=== PATIENT | female | born 1980 | race Caucasian/White ===

== ENCOUNTER 2017-08-19 12:21 | Inpatient (IN) ==
[2017-08-19 13:18] LABS: VBG PH 7.41 pH Units (7.32-7.42)
[2017-08-19 13:19] LABS: Basophils # 0.1 K/mcL (0.0-0.2); Basophils % 0.5 %; Eosinophils # 0.1 K/mcL (0.0-0.6); Eosinophils % 0.6 %; Hematocrit 37.4 % (35.3-44.9); Immature Granulocytes % 0.9 % (0-4); Lymphocytes # 1.2 K/mcL (0.6-4.6); Lymphocytes % 9.1 %; Mean Corpuscular HGB Conc 32.1 g/dL (31.6-35.5); Mean Corpuscular Hemoglobin 26.5 pg (28.0-33.3); Mean Corpuscular Volume 82.7 fL (83.0-100.0); Mean Platelet Volume 11.8 fL (9.4-12.4); Monocytes # 1.2 K/mcL (0.0-1.3); Monocytes % 9.1 %; Neutrophils # 10.8 K/mcL (1.6-8.9); Platelet Count 235 K/mcL (140-400); Red Blood Count 4.52 M/mcL (3.82-4.97); Red Cell Distribution Width 12.5 % (11.5-14.5); Segmented Neutrophils % 79.8 %
[2017-08-19 13:36] LABS: BUN/Creatinine Ratio 13 (6-26); Blood Urea Nitrogen 11 mg/dL (7-20); Calcium 9.7 mg/dL (8.6-10.8); Carbon Dioxide 22 mEq/L (19-29); Chloride 94 mEq/L (98-109); Glucose 467 mg/dL (70-99); Osmolality,Calculated 292 (280-300); Sodium 131 mEq/L (136-145); eGFR For African Americans > 60 (> 60); eGFR For Non-African Americans > 60 (> 60)
[2017-08-19 14:15] LABS: Beta-Hydroxybutyric Acid > 2.00 mmol/L (0.02-0.27)
[2017-08-19] MEDS ORDERED: Insulin Human Regular 8 UNIT in 0.9 % Sodium Chloride 10 ML IV ONE (15:42)
[2017-08-19] MEDS ORDERED: Vancomycin 1,000 MG in D5% in Water 250 ML IVPB ONE ×2 (15:42→23:00)
--- NOTE | 2017-08-19 15:44 | Emergency Department Note ---
Disposition Clinical Impression: Cellulitis of foot, Hyperglycemia Disposition: Admitted As Inpatient Condition: Fair Referrals: Celia Hall, AUTOMOTIVE MECHANICAL ENGINEER [Primary Care Provider] - Forms: ED Satisfaction Letter Time of Disposition: 17:44 Extremity Problem HPI - General Chief complaint: ED Extremity Problem,Nontraumatic Stated complaint: High sugars/cellulitis on right foot Time Seen by Provider: 08/19/17 12:27 Source: patient Mode of arrival: ambulatory Limitations: no limitations Nursing Notes Reviewed: Yes Vital Signs Reviewed: Yes - History of Present Illness HPI Narrative: 36-year-old female with a history of diabetes comes in with a red swollen right foot. The patient was seen by Dr. curry today and was sent over for admission and surgery tomorrow. Pt Subjective Complaint: extremity pain, extremity swelling Onset (ago): day(s) Consistency: constant Pain Scale: 10 Quality: burning, aching Improves with: nothing Worsens with: weight bearing, walking Associated symptoms: Denies: chest pain, shortness of breath - Related Data Home Medications Medication Instructions Recorded Confirmed Hydrocodone/Acetaminophen [Vicodin 1 each PO Q4H PRN 08/04/16 08/04/16 Es 7.5-300 mg Tablet] Insulin ASPART [NovoLOG] 6 - 8 units SQ TID 08/04/16 08/04/16 Insulin Glargine [Lantus] 60 units SQ QAM 08/04/16 08/04/16 Levothyroxine [Synthroid] 75 mcg PO DAILY 08/04/16 08/04/16 Vancomycin HCl 125 mg PO QID 08/04/16 08/04/16 metFORMIN [Glucophage] 1,000 mg PO DAILY 08/04/16 08/04/16 Previous Rx's Medication Instructions Recorded Vancomycin [Vancocin (wt based)] 0 mg IV DAILY 14 Days vial 08/07/16 traMADol [Ultram] 50 mg PO Q6HR PRN #30 tablet 08/09/16 Ciprofloxacin [Cipro] 500 mg PO BID 10 Days tablet 02/19/17 Doxycycline 100 mg PO BID 10 Days capsule 02/19/17 Allergies Allergy/AdvReac Type Severity Reaction Status Date / Time Amoxicillin Allergy Swelling Verified 02/19/17 18:04 of Lip/Tongue/Throat ampicillin Allergy Swelling Verified 02/19/17 18:04 of Lip/Tongue/Throat Sulfa (Sulfonamide Allergy Rash Verified 02/19/17 18:04 Antibiotics) sulfamethoxazole Allergy Rash Verified 02/19/17 18:04 [From Bactrim] trimethoprim [From Bactrim] Allergy Rash Verified 02/19/17 18:04 Erythromycin Base AdvReac Unknown Itching Verified 02/19/17 18:04 Penicillins [PCN] AdvReac Itching Verified 02/19/17 18:04 Constitutional: Denies: fever, chills, weakness, weight change Eyes: Denies: eye pain, eye discharge, vision change ENT ED: Denies: ear pain, throat pain, dental pain, hearing loss, epistaxis, congestion, dysphagia Cardiovascular: Denies: chest pain, palpitations, dyspnea on exertion, edema, syncope Respiratory: Denies: cough, dyspnea, wheezes, hemoptysis, stridor Gastrointestinal: Denies: abdominal pain, nausea, vomiting, diarrhea, constipation, hematemesis, melena, hematochezia Genitourinary: Denies: dysuria, frequency, hematuria, discharge Musculoskeletal: Reports: arthralgia. Denies: back pain, neck pain, myalgia Integumentary: Denies: rash, abrasion, lesions Neurological: Denies: headache, weakness, numbness, paresthesias, confusion, abnormal gait, vertigo Psychiatric: Denies: anxiety, depression, suicidal thoughts, homicidal thoughts , auditory hallucinations, visual hallucinations Endocrine: Denies: fatigue Hematological/Lymphatic: Denies: easy bleeding, easy bruising Allergic/Immunologic: Denies: facial swelling, urticaria Past Medical History - Past Medical History Medical history: Reports: diabetes, hypertension, thyroid disease Surgical history: Reports: orthopedic, other (Left great toe amputation) Psychiatric history: Reports: no psych history ZANJERO history: Reports: no ZANJERO history - Social History Smoking Status: Former smoker Smokeless Tobacco Status: No Alcohol use: Reports: none Drug use: Reports: none Physical Exam - General Limitations: no limitations General appearance: alert, in no apparent distress - Head Head exam: atraumatic, normocephalic, normal inspection - Eye Eye exam: Present: normal appearance, PERRL, EOMI - ENT ENT exam: normal exam, normal oropharynx, mucous membranes moist - Neck Neck exam: Present: normal inspection, full ROM, trachea midline - Chest Chest inspection: Present: normal inspection, symmetric chest wall rise - Respiratory Respiratory exam: Present: normal lung sounds bilaterally - Cardiovascular Cardiovascular exam: Present: regular rate, normal rhythm, normal heart sounds - Abdominal Exam Abdominal exam: Present: soft, Non-Tender. Absent: tenderness, distention, guarding, rebound, rigidity - Extremities Exam Extremities exam: Present: normal inspection, full ROM. Absent: tenderness, pedal edema - Expanded Lower Extremity Exam Foot/toe exam: Present: tenderness (Right dorsum foot), swelling (Right foot), erythema (Right foot) Neurovascular/Tendon exam: Absent: motor deficit, sensory deficit, tendon deficit Gait: not tested/not observed - Back Exam Back exam: Present: normal inspection, full ROM. Absent: tenderness - Neurological Exam Neurological exam: Present: alert, oriented X3 - Psychiatric Psychiatric exam: Present: normal affect, normal mood - Skin Skin exam: Present: warm, dry, intact, normal color Course - Reevaluation(s) Reevaluation #1: 36-year-old diabetic comes in with an infected right foot. Patient saw podiatry today and they wanted do surgery on her tomorrow. We will admit IV antibiotics. Time: 17:42 - Consultations Consultation #1: Discussed with Dr. curry, admit to hospitalist. Time: 15:30 Consultation #2: Discussed with Dr. Kimball, admit Time: 17:43 Vital Signs Temperature 98.2 F 08/19/17 12:24 Pulse Rate 95 08/19/17 12:24 Respiratory Rate 16 08/19/17 12:24 Blood Pressure 157/85 08/19/17 12:24 O2 Sat by Pulse Oximetry 98 08/19/17 12:24 Temperature 98.2 F 08/19/17 12:24 Pulse Rate 94 08/19/17 16:36 Respiratory Rate 18 08/19/17 16:36 Blood Pressure 151/87 08/19/17 16:36 O2 Sat by Pulse Oximetry 95 08/19/17 16:36 Oxygen Delivery Oxygen Delivery Room Air Extremity Problem, Nontraumati - Lab Data Lab results reviewed: Yes I reviewed the patient's lab results. Result diagrams: 08/19/17 13:08 08/19/17 13:08 Lab Results 08/19/17 08/19/17 08/19/17 Range/Units 13:08 13:08 13:08 WBC 13.5 H (4.3-11.1) K/mcL RBC 4.52 (3.82-4.97) M/mcL Hgb 12.0 (11.5-15.4) g/dL Hct 37.4 (35.3-44.9) % MCV 82.7 L (83.0-100.0) fL MCH 26.5 L (28.0-33.3) pg MCHC 32.1 (31.6-35.5) g/dL RDW 12.5 (11.5-14.5) % Plt Count 235 (140-400) K/mcL MPV 11.8 (9.4-12.4) fL Immature Gran % 0.9 (0-4) % Seg Neutrophils % 79.8 % Lymphocytes % 9.1 % Monocytes % 9.1 % Eosinophils % 0.6 % Basophils % 0.5 % Neutrophils # 10.8 H (1.6-8.9) K/mcL Lymphocytes # 1.2 (0.6-4.6) K/mcL Monocytes # 1.2 (0.0-1.3) K/mcL Eosinophils # 0.1 (0.0-0.6) K/mcL Basophils # 0.1 (0.0-0.2) K/mcL VBG pH 7.41 (7.32-7.42) pH Units VBG pCO2 43 (41-51) mmHg VBG pO2 38 (25-40) mmHg VBG HCO3 27 (21-27) mEq/L Sodium 131 L (136-145) mEq/L Potassium 4.0 (3.5-4.5) mEq/L Chloride 94 L (98-109) mEq/L Carbon Dioxide 22 (19-29) mEq/L BUN 11 (7-20) mg/dL Creatinine 0.82 (0.57-1.11) mg/dL Est GFR ( Amer) > 60 (> 60) Est GFR (Non-Af Amer) > 60 (> 60) BUN/Creatinine Ratio 13 (6-26) Glucose 467 H (70-99) mg/dL Calculated Osmolality 292 (280-300) Calcium 9.7 (8.6-10.8) mg/dL Beta-Hydroxybutyric Acd > 2.00 H (0.02-0.27) mmol/L - Radiology Data Radiology results reviewed: Yes I reviewed the patient's radiology results. Chest X-Ray 08/19/17 12:33 IMPRESSION: No acute pulmonary process. D/ / Art Barker / Art Barker Interpreting Provider: Art Barker Foot X-Ray 08/19/17 12:34 IMPRESSION: Soft tissue swelling along the medial aspect of the foot suggesting cellulitis but nonspecific. No evidence of soft tissue gas. No specific radiographic evidence of osteomyelitis. D/ / 08/19/2017 13:09:33 Nick Cheatham MD / Heena Cowan Interpreting Provider: Nick Cheatham MD
[2017-08-19] MEDS ORDERED: Lidocaine -MPF 1% 5 ML AMPUL INFILT ONE (15:45)
[2017-08-19] MEDS ORDERED: Lidocaine -MPF 1% 2 ML VIAL INFILT ONE (16:00)
[2017-08-19 18:20] LABS: C-Reactive Protein 142 mg/L (Less than 5)
[2017-08-19] MEDS ORDERED: *HR* HYDROmorphone (PF) 1 MG/ML SYRINGE IVP ONE (19:00)
[2017-08-19] MEDS ORDERED: Ondansetron 4 MG/2 ML VIAL IVP ONE (19:00)
--- NOTE | 2017-08-19 19:53 | Internal Med History&Physical ---
<Carlos Basilio - Last Filed: 08/19/17 22:47> Date of Encounter: 08/19/17 Time of Encounter: 19:52 Assessment and Plan (1) Sepsis Current visit: Yes Status: Acute 2 SIRS criteria HR 97, WBC 13.5, RLE cellulitis source of infection Lactic acid pending, sepsis bolus ordered, continue IVF at 125cc/hr Blood, urine, and wound cultures pending. 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 Patient has a power glide in place. Continue Vanc and Aztreonam (patient is allergic to PCN) X ray reveals soft tissue swelling along the medial aspect of the foot suggesting cellulitis but nonspecific. No evidence of soft tissue gas. CT right foot pendingto r/o osteomyelitis Qualifiers: Osteomyelitis location: foot Laterality: right Qualified Code(s): M86.9 - Osteomyelitis, unspecified (3) Cellulitis of foot Current visit: Yes Status: Acute Patient sent to the ED from Podiatry/ Dr. Lo office today due to infected diabetic foot ulcer, Right foot cellulitis. WBC 13.5, CRP 142, ESR > 130 X ray reveals soft tissue swelling along the medial aspect of the foot suggesting cellulitis but nonspecific. No evidence of soft tissue gas. No specific radiographic evidence of osteomyelitis. Continue Vanc and Aztreonam (patient is allergic to PCN) (4) Hyperglycemia Current visit: Yes Status: Acute Blood glucose 545 --> 431, Beta-hydroxybutyric acid > 2 Anion gap 15 8 units Insulin given in ED, Levemir 60 units given, plus high dose SSI Continue to monitor (5) Diabetes mellitus type 2 in obese Current visit: Yes Status: Acute HGB a1c > 14.1 on 08/04/17 Continue home insulin, corrective high dose SSI, and accuchecks Continue to monitor (6) Hypertension Current visit: No Status: Chronic Continue home meds Qualifiers: Hypertension type: essential hypertension Qualified Code(s): I10 - Essential (primary) hypertension (7) Hypothyroidism Current visit: No Status: Chronic Continue home meds Qualifiers: Hypothyroidism type: acquired Qualified Code(s): E03.9 - Hypothyroidism, unspecified (8) Morbid obesity with BMI of 45.0-49.9, adult Current visit: Yes Status: Acute Discussed diet modification and exercise (9) DVT prophylaxis Current visit: No Status: Acute Hold Heparin due to surgery in AM Internal Medicine - H&P: HPI Chief complaint: Right foot infection Admitted From: Home Plans for Post Hospital Care: Home History of present illness: Ms. Rocha is a 36 year old female with a PMH of poorly controlled DM, HTN, and hypothyroidism that was sent to the ED from Podiatry/ Dr. Lo office today due to infected diabetic foot ulcer. 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 Patient has a power glide line in place and will likely have surgery tomorrow AM. Past Med Surg Social Fam HX - Past Medical History Medical history: diabetes, hypertension, thyroid disease Psychiatric history: no psych history - Past Surgical History Surgical History: orthopedic, other (Left great toe amputation) - Social History Smoking Status: Former smoker Smokeless Tobacco Status: No Alcohol use: none Drug use: none - Family History Mother Hx Family Endocrine Disorder: Yes Internal Medicine - H&P: Meds Insulin ASPART [NovoLOG] 0 units SQ TID 08/04/16 [History] Insulin Glargine [Lantus] 60 units SQ QAM 08/04/16 [History] Levothyroxine [Synthroid] 75 mcg PO DAILY 08/04/16 [History] Doxycycline Hyclate [Vibramycin] 100 mg PO Q12H 08/19/17 [History] Lisinopril [Zestril] 20 mg PO DAILY 08/19/17 [History] 3 Allergy/AdvReac Type Severity Reaction Status Date / Time Amoxicillin Allergy Swelling Verified 02/19/17 18:04 of Lip/Tongue/Throat ampicillin Allergy Swelling Verified 02/19/17 18:04 of Lip/Tongue/Throat Sulfa (Sulfonamide Allergy Rash Verified 02/19/17 18:04 Antibiotics) sulfamethoxazole Allergy Rash Verified 02/19/17 18:04 [From Bactrim] trimethoprim [From Bactrim] Allergy Rash Verified 02/19/17 18:04 Erythromycin Base AdvReac Unknown Itching Verified 02/19/17 18:04 Penicillins [PCN] AdvReac Itching Verified 02/19/17 18:04 All Systems PM: A 10-system review of systems was performed and is negative for pertinent findings except as documented above in the HPI. - Constitutional Constitutional: no chills, no fever(s), no night sweats - EENT Eyes: no change in vision Nose, mouth and throat: no dysphagia, no nasal discharge, no neck pain, no sore throat - Cardiovascular Cardiovascular ROS IM: no chest pain, no dyspnea, no palpitations, no syncope - Respiratory Respiratory: no cough, no dyspnea, no wheezing, no excessive phlegm production - Gastrointestinal Gastrointestinal: no abdominal pain, no diarrhea, no nausea, no vomiting - Genitourinary Genitourinary: no change in urinary stream, no dysuria, no flank pain, no hematuria - Musculoskeletal Musculoskeletal ROS IM: arthralgias, joint swelling, myalgias, no numbness, no tingling - Integumentary Integumentary IM: erythema, new lesions, skin ulcer, no rash, no unusual bruising - Neurological Neurological ROS: no confusion, no convulsions, no focal weakness, no numbness, no tingling, no tremor(s) - Hematologic/Lymphatic Hematologic/Lymphatic: no easy bruising - Constitutional Vitals: Temp Pulse Resp BP Pulse Ox 98.2 F 94 16 152/75 95 08/19/17 12:24 08/19/17 16:36 08/19/17 18:44 08/19/17 18:44 08/19/17 16:36 General appearance: Present: A&O X 3, morbidly obese, pleasant, no acute distress, answers questions appropriately - Head Head exam: Present: atraumatic, normal inspection, normocephalic - Eye Eye exam: Present: EOMI, PERRL - ENT ENT exam: Present: mucous membranes moist, normal oropharynx - Neck Neck exam general surgery: Present: lymphadenopathy, normal inspection, tenderness, supple - Respiratory Respiratory exam: Present: CTAB. Absent: rhonchi, wheezes - Cardiovascular Cardiovascular exam: Present: RRR, +S1, +S2 - GI/Abdominal GI/Abdominal exam: Present: normal bowel sounds, soft. Absent: distended, guarding, tenderness - Extremities Exam Extremities exam: Present: joint swelling, pedal edema (erythema, swelling, and ulcer with purulent discharge between right toes 1 & 2, tenderness, no proximal streaking), tenderness, warm Additional comments: prior left great to amputation - Back Exam Back exam: Present: normal inspection. Absent: tenderness - Neurological Exam Neurological exam: Present: alert, oriented X3, no focal deficits, strengths equal and symetr throughout. Absent: altered - Psychiatric Psychiatric exam: Present: normal affect, normal mood Additional comments: poor insight - Skin Skin exam: Present: erythema Additional comments: erythema, swelling, and ulcer with purulent discharge between right toes 1 & 2 Internal Med - H&P Results - Labs CBC & Chem 7: 08/19/17 13:08 08/19/17 13:08 <Shaquille Guevara - Last Filed: 08/19/17 22:56> Date of Encounter: 08/19/17 Internal Medicine - H&P: HPI History of present illness: Ms. Rocha is a 36 year old female All Systems PM: A 10-system review of systems was performed and is negative for pertinent findings except as documented above in the HPI. - Constitutional Vitals: Temp Pulse Resp BP Pulse Ox 98.2 F 97 16 155/70 94 08/19/17 20:38 08/19/17 20:38 08/19/17 20:38 08/19/17 20:38 08/19/17 20:51 Internal Med - H&P Results - Labs CBC & Chem 7: 08/19/17 13:08 08/19/17 13:08 - Attending Attestation I have independently seen and examined this patient on 08/19/17 and discussed plan of care with resident physician and the patient 36-year-old female with morbid obesity, uncontrolled diabetes with A1c greater than 14, hypertension. She was referred to the ER by her maintenance mechanic helper following failure of outpatient therapy for the right foot cellulitis. On Presentation, she is septic with heart rate persistently greater than 90, leukocytosis of 13.5, elevated ESR and CRP, hyperglycemia with glucose greater than 500. On Current examination she is afebrile .significant findings and her right foot , she has right foot swelling with erythema and tenderness up to the ankle. She has visible pus collection in the webspace between her first and second toe. There is no punctum or discharge. Her left pectoral has been amputated. Systemic exam is unremarkable. Labs and imaging reviewed and noted. Assessment Sepsis Right foot cellulitis with abscess Suspected osteomyelitis Uncontrolled diabetes mellitus Morbid obesity Hypertension Plan Continue vancomycin, and aztreonam for topical and anaerobic coverage. [employer] following, patient is for surgery in the morning. Foot x-ray noted for soft tissue swelling. Obtain CAT scan of the right foot to rule out osteomyelitis, patient has ESR greater than 130 and due to uncontrolled diabetes is high risk for osteomyelitis. Continue with basic insulin therapy Rest of details as in the resident physicians documentation
[2017-08-19] MEDS ORDERED: Naloxone 0.4 MG/ML INJ IVP PRN (20:40)
[2017-08-19] MEDS ORDERED: D5% in Water 1,000 ML IVC PRN (20:46)
[2017-08-19] MEDS ORDERED: Dextrose Gel 15 GM PO PRN ×2 (20:46)
[2017-08-19] MEDS ORDERED: *HR* Dextrose 50 % in Water (Syg) 50 ML SYRINGE IVP PRN (20:46)
[2017-08-19] MEDS ORDERED: Vancomycin 1,250 MG in D5% in Water 250 ML IVPB SCH (21:00)
[2017-08-19] MEDS ORDERED: Insulin LISPRO 300 UNITS/3 ML VIAL SQ SCH ×3 (21:00→23:15)
[2017-08-19] MEDS ORDERED: Insulin DETEMIR 100 UNIT/ML X5UNITS SQ SCH (21:00)
[2017-08-19] MEDS ORDERED: Insulin DETEMIR 100 UNIT/ML X5UNITS SQ ONE (22:31)
[2017-08-19] MEDS ORDERED: 0.9 % Sodium Chloride 1,000 ML IVC ONE (22:34)
[2017-08-19] MEDS: 0.9 % Sodium Chloride 1,000 ML IVC SCH (22:59)
[2017-08-19] MEDS: *HR* HYDROcodone/Acet 5/325 mg TABLET PO PRN (23:03)
[2017-08-20] MEDS: Aztreonam 2,000 MG in D5% in Water (Mini-Bag+) 100 ML IVPB SCH ×4 (00:16→23:58)
[2017-08-20] MEDS ORDERED: Insulin LISPRO 300 UNITS/3 ML VIAL SQ ONE ×2 (00:28→02:08)
[2017-08-20] MEDS ORDERED: *HR* Dextrose 50 % in Water (Syg) 50 ML SYRINGE IVP PRN (02:21)
[2017-08-20] MEDS ORDERED: Insulin Human Regular 100 UNIT in 0.9 % Sodium Chloride 100 ML IVC SCH (02:30)
[2017-08-20 04:43] LABS: Basophils # 0.1 K/mcL (0.0-0.2); Basophils % 0.6 %; Eosinophils # 0.2 K/mcL (0.0-0.6); Eosinophils % 1.5 %; Hematocrit 34.6 % (35.3-44.9); Hemoglobin 11.2 g/dL (11.5-15.4); Immature Granulocytes % 1.1 % (0-4); Immature Platelets 5.3 % (1.1-6.1); Lymphocytes # 2.4 K/mcL (0.6-4.6); Lymphocytes % 18.3 %; Mean Corpuscular HGB Conc 32.4 g/dL (31.6-35.5); Mean Corpuscular Hemoglobin 26.7 pg (28.0-33.3); Mean Corpuscular Volume 82.6 fL (83.0-100.0); Monocytes # 1.7 K/mcL (0.0-1.3); Monocytes % 12.8 %; Neutrophils # 8.6 K/mcL (1.6-8.9); Platelet Count 237 K/mcL (140-400); Red Blood Count 4.19 M/mcL (3.82-4.97); Red Cell Distribution Width 12.5 % (11.5-14.5); Segmented Neutrophils % 65.7 %
[2017-08-20 04:52] LABS: BUN/Creatinine Ratio 17 (6-26); Blood Urea Nitrogen 13 mg/dL (7-20); Calcium 8.8 mg/dL (8.6-10.8); Carbon Dioxide 26 mEq/L (19-29); Chloride 100 mEq/L (98-109); Glucose 148 mg/dL (70-99); Osmolality,Calculated 287 (280-300); Potassium 3.5 mEq/L (3.5-4.5); Sodium 137 mEq/L (136-145); eGFR For African Americans > 60 (> 60); eGFR For Non-African Americans > 60 (> 60)
[2017-08-20] MEDS: Famotidine 20 MG/2 ML VIAL IVP SCH ×2 (05:41→16:33)
--- NOTE | 2017-08-20 06:52 | Podiatry Consult Note ---
Date of Encounter: 08/20/17 Time of Encounter: 06:49 Assessment and Plan (1) Osteomyelitis Current visit: Yes Status: Suspected At this time there is concern for osteomyelitis, abscess, generalized infection at the right foot. The patient was instructed of our concern and instructed that surgical intervention would be beneficial to remove any abscess or underlying fluid. Patient related understanding. We will perform an incision and drainage as soon as the patient is stable for surgical intervention. Patient was instructed that this may require multiple surgeries/washouts to ensure that the site is clean. The patient was also instructed that it may involve removing bone if the bone is infected. Patient was also instructed that the infection could always return even after surgical intervention. Patient was informed of the risks and complications of surgery. These may include but are not limited to the following; nerve damage, numbness, tingling, RSD/CRPS, loss of motor function, loss of toe, loss of limb, loss of life, ischemia, wound healing issues, infection, scarring, keloid formation, continued pain, arthritis, non-union, mal-union, prominent hardware, displaced hardware, reaction to hardware, the need to remove hardware, bruising, continued limp, the need for future surgery, over correction, under correction, chronic swelling, the need for physical therapy, stiffness of joints, ulceration , slow healing, wound dehiscence, reaction to implant, reaction to sutures. The patient was informed of the possible conservative treatments available which may include but are not limited to the following: Orthotics, bracing, non -weight bearing, physical therapy, padding, taping, steroid injections, NSAIDS, casting. The patient was given the option to seek a second opinion. It was explained that surgery is an art and not an exact science therefore results cannot be guaranteed. All the patients questions and concerns were addressed. Patient agrees to have the surgery despite the possible risks and complications. Absolutely no guarantees were given or implied. After surgery the patient will likely need to be followed by infectious disease for PICC line and continued antibiotics. The patient will need to remain nonweightbearing during the initial postoperative course and possibly for the next 3-6 weeks after surgical intervention. The patient may have a wound VAC applied. The patient was instructed on the importance of maintaining her glucose and instructed that surgically we can drain abscesses and try and fix her foot but without her diligent control blood glucose and the other comorbidities the foot may not heal and would be more susceptible to further infections. Qualifiers: Osteomyelitis location: foot Laterality: right Qualified Code(s): M86.9 - Osteomyelitis, unspecified History of Present Illness Chief complaint: Right foot HPI: Ms. Rocha is a 36 year old female who had previous infection of the left foot with amputation of the left great toe presented to my clinic today. Upon presentation she had fever, chills, nausea. Patient related an overall feeling of sickness and malaise. Patient related difficulty walking. Due to the patient's other comorbidities and her reports of blood glucose levels being in excess of 400-500 she was sent immediately to the emergency department. Patient related that the ulcer/infection had been present for multiple days. Patient related that she does not control her blood glucose levels very well. Past Med Surg Social Fam HX - Past Medical History Medical history: diabetes, hypertension, thyroid disease Psychiatric history: no psych history - Past Surgical History Surgical History: orthopedic, other (Left great toe amputation) - Social History Smoking Status: Former smoker Packs per day: 3 Smokeless Tobacco Status: No Alcohol use: none Drug use: none - Family History Mother Hx Family Endocrine Disorder: Yes Medications and Allergies Insulin ASPART [NovoLOG] 0 units SQ TID 08/04/16 [History] Insulin Glargine [Lantus] 60 units SQ QAM 08/04/16 [History] Levothyroxine [Synthroid] 75 mcg PO DAILY 08/04/16 [History] Doxycycline Hyclate [Vibramycin] 100 mg PO Q12H 08/19/17 [History] Lisinopril [Zestril] 20 mg PO DAILY 08/19/17 [History] 3 Allergy/AdvReac Type Severity Reaction Status Date / Time Amoxicillin Allergy Swelling Verified 02/19/17 18:04 of Lip/Tongue/Throat ampicillin Allergy Swelling Verified 02/19/17 18:04 of Lip/Tongue/Throat Sulfa (Sulfonamide Allergy Rash Verified 02/19/17 18:04 Antibiotics) sulfamethoxazole Allergy Rash Verified 02/19/17 18:04 [From Bactrim] trimethoprim [From Bactrim] Allergy Rash Verified 02/19/17 18:04 Erythromycin Base AdvReac Unknown Itching Verified 02/19/17 18:04 Penicillins [PCN] AdvReac Itching Verified 02/19/17 18:04 All Systems Reviewed: A 10-system review of systems was performed and is negative for pertinent findings except as documented above in the HPI. Physical Exam - Constitutional Vitals: Temp Pulse Resp BP Pulse Ox 97.3 F L 69 16 141/80 96 08/20/17 03:54 08/20/17 03:54 08/20/17 03:54 08/20/17 03:54 08/20/17 03:54 Exam: Pedal pulses palpable, significant edema noted to the right lower extremity. Capillary fill time intact to the digits. There is a small somewhat open lesion on the first interspace of the right foot with likely abscess deep to the site. There is drainage consistent with purulence and serous drainage. Warmth is noted. Significant erythema is noted. Sensation decreased consistent with peripheral neuropathy. Pain with palpation to the first interspace of the right foot. There are no other open lesions, abrasions, or ulcerations. Elevated white blood cell count, ESR, CRP consistent with infection. Results - Labs Result Diagrams: 08/20/17 04:30 08/20/17 04:30 Labs: Abnormal lab results WBC 13.2 K/mcL (4.3-11.1) H 08/20/17 04:30 Hgb 11.2 g/dL (11.5-15.4) L 08/20/17 04:30 Hct 34.6 % (35.3-44.9) L 08/20/17 04:30 MCV 82.6 fL (83.0-100.0) L 08/20/17 04:30 MCH 26.7 pg (28.0-33.3) L 08/20/17 04:30 Monocytes # 1.7 K/mcL (0.0-1.3) H 08/20/17 04:30 ESR >= 130 mm/hr (0-15) H 08/19/17 13:08 Glucose 148 mg/dL (70-99) H 08/20/17 04:30 POC Glucose 205 (58-89) H 08/20/17 03:54 C-Reactive Protein 142 mg/L (Less than 5) H 08/19/17 13:08 Beta-Hydroxybutyric Acd > 2.00 mmol/L (0.02-0.27) H 08/19/17 13:08 H & H 08/20/17 Range/Units 04:30 Hgb 11.2 L (11.5-15.4) g/dL Hct 34.6 L (35.3-44.9) % All other labs normal. Consult Discharge Plan - Plan Referrals: Celia Hall, TREVER [Primary Care Provider] -
[2017-08-20] MEDS ORDERED: Insulin LISPRO 300 UNITS/3 ML VIAL SQ SCH ×3 (07:30→09:00)
[2017-08-20] MEDS: Insulin LISPRO 300 UNITS/3 ML VIAL SQ SCH ×7 (08:16→22:21)
[2017-08-20] MEDS: Lisinopril 20 MG TABLET PO SCH (08:26)
[2017-08-20] MEDS: *HR* HYDROcodone/Acet 5/325 mg TABLET PO PRN (08:37)
[2017-08-20] MEDS ORDERED: INSULIN GLARGINE 60 UNIT SQ SCH (09:00)
[2017-08-20] MEDS ORDERED: Insulin DETEMIR 100 UNIT/ML X5UNITS SQ SCH (09:00)
[2017-08-20] MEDS: Insulin DETEMIR 100 UNIT/ML X5UNITS SQ SCH (09:12)
[2017-08-20] MEDS: 0.9 % Sodium Chloride 1,000 ML IVC SCH (09:13)
[2017-08-20] MEDS: Vancomycin 2,000 MG in D5% in Water 500 ML IVPB SCH (10:50)
[2017-08-20 10:54] LABS: Magnesium 1.4 mg/dL (1.6-2.6); Phosphorous 3.1 mg/dL (2.3-4.7)
[2017-08-20 11:19] LABS: Prothrombin Time 11.2 Seconds (9.4-12.1)
[2017-08-20 11:21] LABS: Activated Partial Thrombo Time 27.3 Seconds (26.0-36.0)
[2017-08-20 11:55] LABS: Estimated Average Glucose > 355 mg/dl; Hemoglobin A1C >= 14.1 %
--- NOTE | 2017-08-20 18:10 | Anesthesia Evaluation PreOp ---
Date of Encounter: 08/20/17 Time of Encounter: 18:08 - Past History Planned Operation: I&D Right Foot Pulmonary History: Former smoker (quit 11 years ago) HADOOP CONSULTANT History: Denies Any Significant HX Other Medical History: Diabetes Type II, Thyroid (Hypothyroid), Other (Morbid obesity BMI-46.3) Anesthesia History: No Prior Anesthetic Complications, Past Anesthesia (Left Great toe Amp) : No Test: Negative (08/20/2017) Alcohol Use: none Drug use: none Medications and Allergies Insulin ASPART [NovoLOG] 0 units SQ TID 08/04/16 [History] Insulin Glargine [Lantus] 60 units SQ QAM 08/04/16 [History] Levothyroxine [Synthroid] 75 mcg PO DAILY 08/04/16 [History] Doxycycline Hyclate [Vibramycin] 100 mg PO Q12H 08/19/17 [History] Lisinopril [Zestril] 20 mg PO DAILY 08/19/17 [History] 3 Allergy/AdvReac Type Severity Reaction Status Date / Time Amoxicillin Allergy Swelling Verified 02/19/17 18:04 of Lip/Tongue/Throat ampicillin Allergy Swelling Verified 02/19/17 18:04 of Lip/Tongue/Throat Sulfa (Sulfonamide Allergy Rash Verified 02/19/17 18:04 Antibiotics) sulfamethoxazole Allergy Rash Verified 02/19/17 18:04 [From Bactrim] trimethoprim [From Bactrim] Allergy Rash Verified 02/19/17 18:04 Erythromycin Base AdvReac Unknown Itching Verified 02/19/17 18:04 Penicillins [PCN] AdvReac Itching Verified 02/19/17 18:04 - Meds/Allergy Pre-op Review Medications Reviewed: Yes Allergies Reviewed: Yes Beta Blockers on Current Med List: No Anesthesia Results - Labs 08/20/17 04:30 08/20/17 04:30 Anesthesia Exam O2 Sat Height 1.73 m Weight 138.164 kg O2 Sat by Pulse Oximetry 96 O2 Sat by Pulse Oximetry 92 O2 Sat by Pulse Oximetry 97 O2 Sat by Pulse Oximetry 97 O2 Sat by Pulse Oximetry 96 O2 Sat by Pulse Oximetry 97 O2 Sat by Pulse Oximetry 94 O2 Sat by Pulse Oximetry 94 Vital Signs Temp Pulse Resp BP Pulse Ox 98.2 F 95 16 157/85 98 08/19/17 12:24 08/19/17 12:24 08/19/17 12:24 08/19/17 12:24 08/19/17 12:24 Vital Signs/O2 Sat, Most Current Temp Pulse Resp BP Pulse Ox 97.3 F L 85 16 103/70 96 08/20/17 14:50 08/20/17 14:50 08/20/17 14:50 08/20/17 14:50 08/20/17 14:50 Blood glucose: 129 Height: 5'8'' Weight: 304# NPO (# of Hours): > 8 hrs Pain Scale: 0 Pain Scale Used: Numeric (1 - 10) - HEENT Pupil (Motor): Pupils equal, EOMI Mallampati: II Teeth: Missing Oral Opening: Greater than 3 - HADOOP CONSULTANT LOC: Oriented HADOOP CONSULTANT Motor: Normal RUE, Normal LUE, Normal RLE, Normal LLE, Normal Face HADOOP CONSULTANT Sensory: Normal: RUE, LUE, RLE, LLE, Face - Cardiac Rhythm: Regular Murmur: None JVD: No Carotid Bruit: No - Pulmonary Breath Sounds: bilateral Clear Respiratory Effort: Symmetrical Anesthesia Assess/Plan ASA Score: 3 Modified Norman Scale for Level of Consciousness: Cooperative, oriented, and tranquil Anesthetic Plan: General Autologous Blood: Yes Monitoring Plan: Standard Monitors Recovery Plan: PACU
--- NOTE | 2017-08-20 18:21 | Internal Med Progress Note ---
Date of Encounter: 08/24/17 Time of Encounter: 12:00 - Assessment and plan (1) Cellulitis of foot Current Visit: Yes Status: Acute Assessment and plan: -Patient noted to have cellulitis with concerns for osteomyelitis as below. -Podiatry consult and appreciate recommendations. (2) Sepsis Current Visit: Yes Status: Acute Assessment and plan: -Concerns for sepsis due to the above -Continue IV antibiotics. Qualifiers: Sepsis type: sepsis due to unspecified organism Qualified Code(s): A41.9 - Sepsis, unspecified organism (3) Hypothyroidism Current Visit: No Status: Suspected Assessment and plan: Continue home medications. Qualifiers: Hypothyroidism type: acquired Qualified Code(s): E03.9 - Hypothyroidism, unspecified (4) Hypertension Current Visit: No Status: Chronic Assessment and plan: Continue home medications. Qualifiers: Hypertension type: essential hypertension Qualified Code(s): I10 - Essential (primary) hypertension (5) Diabetes mellitus type 2 in obese Current Visit: Yes Status: Acute Assessment and plan: Continue home medications. (6) Morbid obesity with BMI of 45.0-49.9, adult Current Visit: Yes Status: Acute Assessment and plan: Lifestyle modifications. - Subjective Interval history: No acute events overnight. - Constitutional Vitals: Temp Pulse Resp BP Pulse Ox 97.3 F L 85 16 103/70 96 08/20/17 14:50 08/20/17 14:50 08/20/17 14:50 08/20/17 14:50 08/20/17 14:50 General appearance: Present: A&O X 3, morbidly obese, pleasant, no acute distress, answers questions appropriately - Respiratory Respiratory exam: Present: CTAB. Absent: accessory muscle use, rales, rhonchi, wheezes - Cardiovascular Cardiovascular exam: Present: RRR, +S1, +S2. Absent: diastolic murmur, gallop, rubs, systolic murmur - GI/Abdominal GI/Abdominal exam: Present: normal bowel sounds, soft, no peritoneal signs. Absent: distended, tenderness Internal Medicine: Result - Labs CBC & Chem 7: 08/24/17 09:49 08/24/17 09:49 Labs: Short CBC 08/20/17 Range/Units 04:30 WBC 13.2 H (4.3-11.1) K/mcL Hgb 11.2 L (11.5-15.4) g/dL Hct 34.6 L (35.3-44.9) % Plt Count 237 (140-400) K/mcL Neutrophils # 8.6 (1.6-8.9) K/mcL BMP 08/20/17 04:30 Sodium 137 Potassium 3.5 Chloride 100 Carbon Dioxide 26 BUN 13 Creatinine 0.75 Glucose 148 H Calcium 8.8 - ABG Interpretation ABG results: PT/INR, D-dimer PT 11.2 Seconds (9.4-12.1) 08/20/17 10:53 - Impressions Impressions Foot CT 08/19/17 22:20 IMPRESSION: No acute bony abnormalities. No CT evidence for osteomyelitis. Subcutaneous edema predominately dorsally and about the 1st digit and in the 1st interspace, nonspecific but possibly reflecting cellulitis. No discrete focal fluid collection seen on this noncontrast exam to suggest abscess. No soft tissue gas. D/ / 08/20/2017 07:57:32 Сергей Pacheco MD / aren Interpreting Provider: Сергей Pacheco MD Consult Discharge Plan - Plan Referrals: Celia Hall CNP [Primary Care Provider] - Felicia Lama CNP [Advanced Practice Nurse] - 09/09/17 9:20 am Prescriptions: Vancomycin HCl in Dextrose 5 % [Vancomycin 1.5 Gram/250 ml-D5w] 1.5 gm IV 1-2XD #30 plast..bag
[2017-08-20 18:58] LABS: Bilirubin,Urine Moderate (Negative); Blood,Urine Small (Negative); Clarity,Urine Turbid (Clear); Color,Urine Yellow (Yellow); Glucose,Urine (UA) >=1000 mg/dL (Normal); Ketones,Urine Negative (Negative); Leukocyte Esterase,Urine Small (Negative); Nitrite,Urine Negative (Negative); Protein,Urine >=300 mg/dL (Neg-Trace); Specific Gravity,Urine 1.028 (1.010-1.025); Urobilinogen,Urine Normal (Normal)
[2017-08-20 19:01] LABS: Squamous Epithelial Cell,Urine Many per lpf (None-Few); WBC,Urine 50-100 per hpf (0-3)
[2017-08-20] MEDS ORDERED: Bupivacaine/Clonidine Syringe 1 EACH SYRINGE ONE (19:02)
[2017-08-20 19:19] LABS: Mucus,Urine Few (Few)
[2017-08-20 19:22] LABS: Bacteria,Urine Moderate per hpf (None-Few); Granular Casts,Urine Few per lpf (None Seen); Hyaline Casts,Urine Moderate per lpf (None-Few); Yeast,Urine Many per hpf (None Seen)
[2017-08-20 19:23] LABS: Amorphous Sediment,Urine Few (Few)
[2017-08-20] MEDS ORDERED: *HR* FentaNYL (PF) 100 MCG/2 ML VIAL ONE (19:33)
[2017-08-20] MEDS ORDERED: Propofol 500 MG/50 ML INFUS..BTL ONE (19:33)
[2017-08-20] MEDS ORDERED: Lidocaine -MPF 2% 2 ML VIAL ONE ×2 (19:33→19:34)
[2017-08-20] MEDS ORDERED: *HR* Midazolam HCl 2 MG/2 ML VIAL ONE (19:34)
[2017-08-20] MEDS ORDERED: Acetaminophen IV 1,000 MG/100 ML INFUS..BTL ONE (19:49)
[2017-08-20] MEDS ORDERED: Metoclopramide 10 MG/2 ML VIAL ONE (19:49)
[2017-08-20] MEDS ORDERED: Famotidine 20 MG/2 ML VIAL ONE (19:50)
--- NOTE | 2017-08-20 20:41 | Operative Note ---
Date of procedure: 08/20/17 Pre-op diagnosis: right foot abscess Post-op diagnosis: same Procedure: Incision and drainage right foot Anesthesia: AURA Surgeon: Rober Lo Estimated blood loss (cc): 10 Specimen: Cultures from wound Condition: stable Disposition: PACU Procedure in Detail: The patient was administered IV antibiotics. The patient was transported to the operative room and placed on operating table. Following anesthesia the extremity was scrubbed prepped and draped in the usual aseptic fashion. A timeout was performed. An incision was made and deepened through subcutaneous tissue with care taken to identify and retract all vital neurovascular structures.incision was made on the plantar aspect of the foot and measured approximately 2 cm in length, there was another incision made on the dorsal aspect of the foot near the first interspace. There is noted to be diffuse purulence not a single collection or well encapsulated collection of purulence but diffusely spread purulence throughout the first interspace. The purulence was cultured. The incision sites were irrigated with copious amounts of normal saline and closed in a layered fashion. A dry sterile dressing was applied. The pneumatic tourniquet was deflated and a hyperemic response was noted to all digits. The patient tolerated the procedure and anesthesia well and was transported to the recovery room with vital signs stable and vascular status intact to both feet. The patient will be re-admitted to the floor per anesthesia. The patient will keep the dressings clean, dry, intact until the follow-up appointment in 1-2 weeks. The patient will remain nonweightbearing. The patient will need an infectious disease consult for likely antibiotics for the course of approximately 6 weeks. The patient will need repacking every 12 hours with iodoform gauze or Mesalt. Dressing changes will need to be performed at that time as well consisting of nano MARQUEZ. In a day or 2 we may take the patient back for an additional washout depending on her white blood cell count and other factors.
[2017-08-20] MEDS ORDERED: *HR* Succinylcholine 200 MG/10 ML VIAL IVP ONE (20:45)
[2017-08-20] MEDS ORDERED: EPHEDrine 50 MG/ML VIAL ONE (20:46)
[2017-08-20] MEDS ORDERED: *HR* Labetalol 20 MG/4 ML SYRINGE IVP PRN (21:03)
[2017-08-20] MEDS ORDERED: *HR* Promethazine 25 MG/ML VIAL IVP PRN (21:03)
[2017-08-20] MEDS ORDERED: *HR* HYDROmorphone (PF) 1 MG/ML SYRINGE IVP PRN (21:03)
[2017-08-20] MEDS ORDERED: Ondansetron 4 MG/2 ML VIAL IVP ONE (21:08)
[2017-08-20] MEDS ORDERED: Ondansetron 4 MG/2 ML VIAL ONE (21:10)
--- NOTE | 2017-08-20 21:55 | Anesthesia Evaluation Post Op ---
Date of Encounter: 08/20/17 Time of Encounter: 21:30 - Vital Signs Vital Signs: Vital Signs/O2 Sat/Glucose, Most Current Temp Pulse Resp BP Pulse Ox 08/20/17 21:22 98.2 F 84 14 144/83 97 08/20/17 21:11 87 14 135/87 95 08/20/17 21:01 86 16 135/75 100 08/20/17 20:51 97.9 F 93 16 126/71 97 - Airway Airway: Non-obstructed - Cardiovascular Irregular Rate - Mental Status Mental Status: Alert & Oriented, Answers Appropriately - Pain Pain Scale: 0 Pain Scale used: Numeric (1 - 10) - Nausea Vomiting Nausea Vomiting: Not Present - Hydration Hydration: Ice chips, Has not voided - Discharge PostOp Status: Transfer Patient to floor Anes Supervising Prov Stmt: Pt seen/evaluated, VSS and pt has met criteria for discharge to floor. - MD Veronica
[2017-08-21] MEDS: Vancomycin 2,000 MG in D5% in Water 500 ML IVPB SCH (00:32)
[2017-08-21] MEDS: *HR* HYDROcodone/Acet 5/325 mg TABLET PO PRN ×3 (04:06→20:14)
[2017-08-21] MEDS: Famotidine 20 MG/2 ML VIAL IVP SCH (05:31)
[2017-08-21] MEDS: Aztreonam 2,000 MG in D5% in Water (Mini-Bag+) 100 ML IVPB SCH ×3 (08:31→23:04)
[2017-08-21] MEDS: Insulin LISPRO 300 UNITS/3 ML VIAL SQ SCH ×7 (08:32→20:14)
[2017-08-21] MEDS: Insulin DETEMIR 100 UNIT/ML X5UNITS SQ SCH (08:32)
[2017-08-21] MEDS: Lisinopril 20 MG TABLET PO SCH (08:33)
[2017-08-21] MEDS: *HR* HYDROmorphone (PF) 1 MG/ML SYRINGE IVP PRN ×2 (08:42→15:12)
[2017-08-21 12:06] LABS: Basophils # 0.1 K/mcL (0.0-0.2); Basophils % 0.4 %; Eosinophils # 0.2 K/mcL (0.0-0.6); Eosinophils % 1.3 %; Hemoglobin 10.8 g/dL (11.5-15.4); Immature Granulocytes % 0.7 % (0-4); Lymphocytes # 1.5 K/mcL (0.6-4.6); Lymphocytes % 11.5 %; Mean Corpuscular HGB Conc 31.8 g/dL (31.6-35.5); Mean Corpuscular Hemoglobin 27.1 pg (28.0-33.3); Mean Corpuscular Volume 85.4 fL (83.0-100.0); Mean Platelet Volume 11.1 fL (9.4-12.4); Monocytes # 1.6 K/mcL (0.0-1.3); Monocytes % 11.7 %; Neutrophils # 9.9 K/mcL (1.6-8.9); Platelet Count 231 K/mcL (140-400); Red Blood Count 3.98 M/mcL (3.82-4.97); Red Cell Distribution Width 12.8 % (11.5-14.5); Segmented Neutrophils % 74.4 %
[2017-08-21 12:19] LABS: BUN/Creatinine Ratio 19 (6-26); Blood Urea Nitrogen 17 mg/dL (7-20); Calcium 8.3 mg/dL (8.6-10.8); Carbon Dioxide 25 mEq/L (19-29); Chloride 104 mEq/L (98-109); Glucose 173 mg/dL (70-99); Osmolality,Calculated 290 (280-300); Potassium 3.4 mEq/L (3.5-4.5); Sodium 137 mEq/L (136-145); eGFR For African Americans > 60 (> 60); eGFR For Non-African Americans > 60 (> 60)
[2017-08-21] MEDS: Ondansetron 4 MG/2 ML VIAL IVP PRN (15:13)
--- NOTE | 2017-08-21 16:14 | Infectious Disease Consult ---
Date of Encounter: 08/21/17 Time of Encounter: 16:11 Assessment and Plan (1) Sepsis Status: Acute Assessment and plan: The patient had two SIRS criteria on admission. Likely secondary to right foot infection. Improved. WBC stable. Tachycardia has improved. Blood cultures drawn 08/19/17 are NGTD. Qualifiers: Sepsis type: sepsis due to unspecified organism Qualified Code(s): A41.9 - Sepsis, unspecified organism (2) Osteomyelitis Status: Suspected Assessment and plan: Location: Right foot Causative organism unclear, cultures are pending. Secondary to right foot DFU. ESR >130. CRP 142. CT of the right foot showed subcutaneous edema dorsally at the level of the 1st digit and 1st interspace. Podiatry consulted and took the patient to the OR 08/20/17 for I & D of the right foot. Operative note reviewed. No bone changes noted, but large amount of purulence was noted directly adjacent to the bone. Given the evidence of gross purulence and markedly elevated inflammatory markers , high index of suspicion for early OM. Continue Vancomycin IV. Pharmacy to dose. Goal trough ~15. Continue Aztreonam 2 grams IV Q8H. Continue wound care and activity restrictions as outlined by the podiatry team. Duration of treatment depends on the clinical picture, but likely 6 weeks of IV antibiotics. Consult social staff worker to assist with discharge planning. EPIV placed 08/20/17. Qualifiers: Osteomyelitis type: acute hematogenous Osteomyelitis location: foot Laterality: right Qualified Code(s): M86.071 - Acute hematogenous osteomyelitis, right ankle and foot (3) Cellulitis of foot Status: Acute Assessment and plan: Location: Right foot. Causative organism unclear, cultures are pending. Improved. Continue antibiotics as above. (4) Hyperglycemia Status: Acute Assessment and plan: FSBS 467 on admission. Patient reports poorly controlled blood sugars at home as well. Management per the primary team. (5) Diabetes Status: Chronic Assessment and plan: Uncontrolled. HgbA1C >14.1%. Recommend aggressive glucose monitoring and control to promote wound healing and prevent re-infection. Qualifiers: Diabetes mellitus type: other specified (including SURESH) Diabetes mellitus complication status: with other specified complication Diabetes mellitus intermediate manager insulin use: with intermediate manager use Qualified Code(s): E13.69 - Other specified diabetes mellitus with other specified complication; Z79.4 - alf (current) use of insulin (6) Hypertension Status: Chronic Qualifiers: Hypertension type: essential hypertension Qualified Code(s): I10 - Essential (primary) hypertension (7) Morbid obesity with BMI of 45.0-49.9, adult Status: Acute Infectious Disease HPI - Data of Consult Patient: new to practice Consult date: 08/21/17 Requesting Physician: Erik Garcia Primary Care Provider: Celia Hall CNP - Consult Narrative Reason for consult: Right foot infection History of present illness: Ms. Rocha is a 36 year old female with medical history of diabetes, hypertension , hypothyroidism, and morbid obesity. The patient was admitted to the hospital August 19 for right foot cellulitis. We are consulted August 21 for further evaluation regarding right foot osteomyelitis. Patient's a 36-year-old female past medical history as stated above. The patient states that 2 days prior to admission she noticed an ulcer, redness, and swelling to the right foot. She states she was seen in outlying hospital and advised to be admitted. They refused to transfer the patient here so she went home and made an appointment to see Dr. curry in the office yesterday. At the office visit, the patient was advised to come to the emergency department for admission. Upon arrival, patient was afebrile, but she was mildly tachycardic. An elevated white blood cell count neutrophilic predominance. Her ESR is greater than 130 and CRP is 142. Additionally, her fingerstick blood sugar was 467. Blood cultures were obtained 2 sets. Chest x- ray was completed that was negative. A foot x-ray showed findings consistent with cellulitis, but no gas. Patient started on vancomycin and aztreonam and admitted for further evaluation. Since admission, the patient has been evaluated by podiatry. Chest CT of her foot completed that showed subcutaneous edema dorsally over the first digit and first interspace. The patient was taken to the operating room on August 20 and underwent an I&D of the right foot. Operative note reveals extensive infection, but no bony abnormality. There was noted to be a large amount of pus that was directly adjacent to the bone. The patient was continued on IV aztreonam and vancomycin. We've been asked to evaluate and make further recommendations. My exam today, the patient states that overall she feels okay. She denies any fevers or chills or rigors prior to admission, but shows report some subjective fevers and chills while here in the hospital. She denies any congestion, earache , or sore throat. She does report a mild headache since surgery. She denies any chest pain, shortness of breath, or cough. She reports some intermittent nausea that she relates to being hungry when she was nothing by mouth. She denies any vomiting, diarrhea, or constipation. She denies any abdominal pain or urinary complaints. She complains of intermittent pain in the right foot and lower part of her right lower extremity. She states that it feels like the foot is less swollen. She denies any known injury to the foot. She states she had her left great toe amputated last year secondary to infection as well. CC: Erik Garcia Past Med Surg Social Fam HX - Past Medical History Attestation: Yes The following information was validated with the patient. Source: patient, old records reviewed, nursing notes reviewed Medical history: diabetes, hypertension, thyroid disease, other (Left foot infection with amputation of left great toe) Psychiatric history: no psych history - Past Surgical History Surgical History: orthopedic, other (Left great toe amputation), other (Tubal ligation) - Social History Smoking Status: Former smoker Packs per day: 3 Smokeless Tobacco Status: No Alcohol use: none Drug use: none Occupational status: unemployed Current living situation: Home - Independent Activity Level: Independent ambulation Recent Out of Country Travel Within the Last 8 Weeks: No Exposure or Possible Exposure to Illness During Travel: No - Family History Mother Hx Family Endocrine Disorder: Yes Infectious Disease-CN:Meds Insulin ASPART [NovoLOG] 0 units SQ TID 08/04/16 [History] Insulin Glargine [Lantus] 60 units SQ QAM 08/04/16 [History] Levothyroxine [Synthroid] 75 mcg PO DAILY 08/04/16 [History] Doxycycline Hyclate [Vibramycin] 100 mg PO Q12H 08/19/17 [History] Lisinopril [Zestril] 20 mg PO DAILY 08/19/17 [History] 3 Allergy/AdvReac Type Severity Reaction Status Date / Time Amoxicillin Allergy Swelling Verified 02/19/17 18:04 of Lip/Tongue/Throat ampicillin Allergy Swelling Verified 02/19/17 18:04 of Lip/Tongue/Throat Sulfa (Sulfonamide Allergy Rash Verified 02/19/17 18:04 Antibiotics) sulfamethoxazole Allergy Rash Verified 02/19/17 18:04 [From Bactrim] trimethoprim [From Bactrim] Allergy Rash Verified 02/19/17 18:04 Erythromycin Base AdvReac Unknown Itching Verified 02/19/17 18:04 Penicillins [PCN] AdvReac Itching Verified 02/19/17 18:04 All systems: reviewed and no additional remarkable complaints except as stated Exam - Constitutional Vitals: Temp Pulse Resp BP Pulse Ox 98.4 F 90 20 155/94 90 08/21/17 14:55 08/21/17 14:55 08/21/17 14:55 08/21/17 14:55 08/21/17 14:55 General appearance: cooperative, morbidly obese, no acute distress - Head Head exam: Present: atraumatic, normal inspection, normocephalic - Eye Eye exam: Present: EOMI, normal appearance, PERRL Pupils: Present: normal accommodation - ENT ENT exam: Present: mucous membranes moist - Neck Neck exam: Present: normal inspection - Respiratory Respiratory exam: Present: CTAB. Absent: rales, respiratory distress, rhonchi, wheezes - Cardiovascular Cardiovascular exam: Present: RRR, +S1, +S2 - GI/Abdominal GI/Abdominal exam: Present: distended (obese), normal bowel sounds, soft. Absent: tenderness - Extremities Exam Extremities exam: Present: pedal edema (1+ RLE), tenderness (RLE, right foot). Absent: joint swelling Additional comments: Surgical sites noted to the plantar and dorsal aspects of the right foot over the 1st webspace. Surgicell packing noted. No active drainage or bleeding noted. Tenderness noted with palpation of the foot and ankle. No foul odor. No marked erythema or warmth. No lymphangitis. - Neurological Exam Neurological exam: Present: alert, oriented X3, no focal deficits - Psychiatric Psychiatric exam: Present: normal affect, normal mood - Skin Skin exam: Present: dry, intact, normal color, warm Infectious Disease CN: Results - Labs CBC & Chem 7: 08/22/17 09:24 08/22/17 09:24 Serology: Serology 08/20/17 08/20/17 Range/Units 18:38 18:38 Urine Color Yellow (Yellow) Urine Clarity Turbid A (Clear) Urine pH 5.0 (5.0-8.0) pH Units Ur Specific [place] 1.028 H (1.010-1.025) Urine Protein >=300 H (Neg-Trace) mg/dL Urine Glucose (UA) >=1000 H (Normal) mg/dL Urine Ketones Negative (Negative) mg/dL Urine Blood Small H (Negative) Urine Nitrite Negative (Negative) Urine Bilirubin Moderate H (Negative) Urine Urobilinogen Normal (Normal) mg/dL Ur Leukocyte Esterase Small H (Negative) Urine Microscopic RBC 5-15 H (0-3) per hpf Urine Microscopic WBC 50-100 H (0-3) per hpf Ur Squamous Epith Cells Many H (None-Few) per lpf Amorphous Sediment Few (Few) Urine Bacteria Moderate H (None-Few) per hpf Hyaline Casts Moderate H (None-Few) per lpf Granular Casts Few H (None Seen) per lpf Urine Mucus Few (Few) Urine Yeast Many H (None Seen) per hpf Ur Culture Indicated? YES A (NO) Urine Test Negative (Negative) - VTE Documentation of Mechanical Device: Intermittent pneumatic compression device Consult Discharge Plan - Plan Referrals: Celia Hall CNP [Primary Care Provider] - Felicia Lama CNP [Advanced Practice Nurse] - 09/09/17 9:20 am
[2017-08-21] MEDS: Vancomycin 1,500 MG in D5% in Water 250 ML IVPB SCH (16:41)
--- NOTE | 2017-08-21 16:58 | Podiatry Progress Note ---
Date of Encounter: 08/21/17 Time of Encounter: 16:30 - Assessment and Plan (1) Osteomyelitis Status: Acute s/p Incision and drainage right foot Per 08/21/17 Dressing removed and changed at bedside. Dorsal and plantar wounds flushed with saline and repacked. Dry dressing replaced with kerlex and SAMSON Patient tolerated well Dressing to be changed every 12 hours as ordered Continue compression with SAMSON Continue current antibiotic therapy as outlined per ID- awaiting intra-op cultures Patient had wound cultures obtained at [facility] prior to coming to [facility], attempting to obtain these cultures to direct antibiotic therapy Patient will likely need 3-6 weeks IV antibiotic therapy Patient will need home health care for dressing changes once discharged Patient may be partial weight bearing to heel only. Will continue to follow Will need appointment with /ZACKERY Lama/ZACKERY Paulino in podiatry clinic after discharge (2) Diabetes Status: Chronic Ha1c >14 Patient educated on need for strict glucose management to promote healing and prevent complications Low carb, low sugar high protein diet covered Internal medicine working on glucose control while inpatient. Qualifiers: Diabetes mellitus type: type 2 Diabetes mellitus complication status: with other specified complication Diabetes mellitus penitentiary insulin use: with computer installation engineer use Qualified Code(s): E11.69 - Type 2 diabetes mellitus with other specified complication; Z79.4 - black leather buffer (current) use of insulin; Z79.4 - black leather buffer (current) use of insulin; Z79.4 - snf (current) use of insulin; Z79.4 - black leather buffer (current) use of insulin (3) Cellulitis of foot Status: Acute Subjective Interval history: post op day #1 Incision and drainage right foot. patient resting comfortably on arrival. Dressing intact however has not been changed as ordered. Dressing which was placed in OR is in place. Patient was recently administered dilaudid as ordered to assist with pain control during dressing change. Patient denies any fevers, chills, n/v or flu like symptoms Objective - Vital Signs Vital Signs: Vital Signs Temp Pulse Resp BP Pulse Ox 08/21/17 14:55 98.4 F 90 20 155/94 90 08/21/17 10:49 97.9 F 88 18 109/74 97 08/21/17 06:54 99.1 F 86 18 111/75 98 08/21/17 03:42 98.8 F 92 16 157/90 99 08/21/17 00:30 98.7 F 88 15 119/71 94 08/20/17 23:30 98.5 F 92 15 123/76 93 08/20/17 22:30 98.2 F 90 15 159/83 93 08/20/17 22:00 97.9 F 86 15 138/73 92 08/20/17 21:30 97.9 F 82 15 140/75 94 08/20/17 21:22 98.2 F 84 14 144/83 97 08/20/17 21:11 87 14 135/87 95 08/20/17 21:01 86 16 135/75 100 08/20/17 20:51 97.9 F 93 16 126/71 97 Intake and Output 08/21/17 08/21/17 08/21/17 07:59 15:59 23:59 Intake Total 600 / 600 340 / 340 100 / 100 Output Total 0 / 0 0 / 0 Balance 600 / 600 340 / 340 100 / 100 Intake: IV Fluids 600 / 600 100 / 100 100 / 100 Azactam 2,000 MG In Dextrose 5% 100 / 100 100 / 100 100 / 100 (Minibag+) 100 ML 100 ML @ 200 mls/hr IVPB Q8HR [facility] Rx#: [id number] Vancocin 2,000 MG In Dextrose 5 500 / 500 % 500 ML @ 250 mls/hr IVPB Q12H [facility] Rx#:[id number] Oral 0 / 0 240 / 240 Output: Urine 0 / 0 0 / 0 Other: Meal Lunch Percent of Meal Consumed 100% Weight 137.8 kg Blood Glucose* 336 227 86 Patient Weight 08/21/17 23:59 Weight 137.8 kg - Exam Exam: General Examination: CONSTITUTIONAL: Alert, oriented, in no acute distress, non-toxic. EXTREMITIES: CFT 3 seconds all toes. Edema +1 and pedal pulses palpable. NEUROLOGIC:Intact sensation to pain and moderate touch s/p I&D of right foot Dressing removed, packing removed Cellulitis and edema remain to periwound and toe #2. There are 2 deep incisions to dorsal and plantar aspect of foot above and below mt #2 s/p I&D There is no active drainage or odor- serosang drainage noted to packing Incision edges pink, no signs of ischema. - Lab Result Diagrams: 08/27/17 04:00 08/27/17 04:00 Labs: Abnormal lab results WBC 13.4 K/mcL (4.3-11.1) H 08/21/17 11:51 Hgb 10.8 g/dL (11.5-15.4) L 08/21/17 11:51 Hct 34.0 % (35.3-44.9) L 08/21/17 11:51 MCH 27.1 pg (28.0-33.3) L 08/21/17 11:51 Neutrophils # 9.9 K/mcL (1.6-8.9) H 08/21/17 11:51 Monocytes # 1.6 K/mcL (0.0-1.3) H 08/21/17 11:51 ESR >= 130 mm/hr (0-15) H 08/19/17 13:08 Potassium 3.4 mEq/L (3.5-4.5) L 08/21/17 11:51 Glucose 173 mg/dL (70-99) H 08/21/17 11:51 POC Glucose 227 (58-89) H 08/21/17 10:52 Hemoglobin A1c >= 14.1 % (-5.6) H 08/20/17 04:30 Calcium 8.3 mg/dL (8.6-10.8) L 08/21/17 11:51 Magnesium 1.4 mg/dL (1.6-2.6) L 08/20/17 04:30 C-Reactive Protein 142 mg/L (Less than 5) H 08/19/17 13:08 Beta-Hydroxybutyric Acd > 2.00 mmol/L (0.02-0.27) H 08/19/17 13:08 Urine Clarity Turbid (Clear) A 08/20/17 18:38 Ur Specific [place] 1.028 (1.010-1.025) H 08/20/17 18:38 Urine Protein >=300 mg/dL (Neg-Trace) H 08/20/17 18:38 Urine Glucose (UA) >=1000 mg/dL (Normal) H 08/20/17 18:38 Urine Blood Small (Negative) H 08/20/17 18:38 Urine Bilirubin Moderate (Negative) H 08/20/17 18:38 Ur Leukocyte Esterase Small (Negative) H 08/20/17 18:38 Urine Microscopic RBC 5-15 per hpf (0-3) H 08/20/17 18:38 Urine Microscopic WBC 50-100 per hpf (0-3) H 08/20/17 18:38 Ur Squamous Epith Cells Many per lpf (None-Few) H 08/20/17 18:38 Urine Bacteria Moderate per hpf (None-Few) H 08/20/17 18:38 Hyaline Casts Moderate per lpf (None-Few) H 08/20/17 18:38 Granular Casts Few per lpf (None Seen) H 08/20/17 18:38 Urine Yeast Many per hpf (None Seen) H 08/20/17 18:38 Ur Culture Indicated? YES (NO) A 08/20/17 18:38 - VTE Documentation of Mechanical Device: Intermittent pneumatic compression device Consult Discharge Plan - Plan Instructions: Osteomyelitis (DC) Referrals: Rober Lo DPM [Partnered Physician] - 08/28/17 8:15 am Celia Hall CNP [Primary Care Provider] - 09/02/17 12:30 pm Felicia Lama CNP [Advanced Practice Nurse] - 09/09/17 9:20 am Prescriptions: amLODIPine [Norvasc] 10 mg PO DAILY #30 tablet OxyCODONE/APAP 5/325 [Percocet 5/325 MG] 1 each PO Q12HR PRN #10 tablet PRN Reason: Pain Vancomycin HCl in Dextrose 5 % [Vancomycin 1.5 Gram/250 ml-D5w] 1.5 gm IV 1-2XD #30 plast..bag
--- NOTE | 2017-08-21 18:54 | Internal Med Progress Note ---
Date of Encounter: 08/24/17 Time of Encounter: 10:00 - Assessment and plan (1) Cellulitis of foot Current Visit: Yes Status: Acute Assessment and plan: -Patient noted to have cellulitis with concerns for osteomyelitis as below. -Continue IV antibiotics. -Podiatry consult and appreciate recommendations. (2) Sepsis Current Visit: Yes Status: Acute Assessment and plan: -Concerns for sepsis due to the above -Continue IV antibiotics. Qualifiers: Sepsis type: sepsis due to unspecified organism Qualified Code(s): A41.9 - Sepsis, unspecified organism (3) Hypothyroidism Current Visit: No Status: Suspected Assessment and plan: Continue home medications. Qualifiers: Hypothyroidism type: acquired Qualified Code(s): E03.9 - Hypothyroidism, unspecified (4) Hypertension Current Visit: No Status: Chronic Assessment and plan: Continue home medications. Qualifiers: Hypertension type: essential hypertension Qualified Code(s): I10 - Essential (primary) hypertension (5) Diabetes mellitus type 2 in obese Current Visit: Yes Status: Acute Assessment and plan: Continue home medications. (6) Morbid obesity with BMI of 45.0-49.9, adult Current Visit: Yes Status: Acute Assessment and plan: Lifestyle modifications. - Subjective Interval history: No acute events overnight. - Constitutional Vitals: Temp Pulse Resp BP Pulse Ox 98.4 F 90 20 155/94 90 08/21/17 14:55 08/21/17 14:55 08/21/17 14:55 08/21/17 14:55 08/21/17 14:55 General appearance: Present: A&O X 3, morbidly obese, pleasant, no acute distress, answers questions appropriately - Respiratory Respiratory exam: Present: CTAB. Absent: accessory muscle use, rales, rhonchi, wheezes - Cardiovascular Cardiovascular exam: Present: RRR, +S1, +S2. Absent: diastolic murmur, gallop, rubs, systolic murmur Internal Medicine: Result - Labs CBC & Chem 7: 08/24/17 09:49 08/24/17 09:49 Labs: Short CBC 08/21/17 Range/Units 11:51 WBC 13.4 H (4.3-11.1) K/mcL Hgb 10.8 L (11.5-15.4) g/dL Hct 34.0 L (35.3-44.9) % Plt Count 231 (140-400) K/mcL Neutrophils # 9.9 H (1.6-8.9) K/mcL BMP 08/21/17 11:51 Sodium 137 Potassium 3.4 L Chloride 104 Carbon Dioxide 25 BUN 17 Creatinine 0.88 Glucose 173 H Calcium 8.3 L Urine 08/20/17 Range/Units 18:38 Urine Color Yellow (Yellow) Urine Clarity Turbid A (Clear) Urine pH 5.0 (5.0-8.0) pH Units Ur Specific [place] 1.028 H (1.010-1.025) Urine Protein >=300 H (Neg-Trace) mg/dL Urine Glucose (UA) >=1000 H (Normal) mg/dL - ABG Interpretation ABG results: PT/INR, D-dimer PT 11.2 Seconds (9.4-12.1) 08/20/17 10:53 - VTE Documentation of Mechanical Device: Intermittent pneumatic compression device Consult Discharge Plan - Plan Referrals: Celia Hall CNP [Primary Care Provider] - Felicia Lama CNP [Advanced Practice Nurse] - 09/09/17 9:20 am Prescriptions: Vancomycin HCl in Dextrose 5 % [Vancomycin 1.5 Gram/250 ml-D5w] 1.5 gm IV 1-2XD #30 plast..bag
[2017-08-21] MEDS ORDERED: D5% in Water (Mini-Bag+) 100 ML IVPB ONE (23:02)
[2017-08-22] MEDS: *HR* HYDROmorphone (PF) 1 MG/ML SYRINGE IVP PRN ×3 (03:23→15:41)
[2017-08-22] MEDS: Vancomycin 1,500 MG in D5% in Water 250 ML IVPB SCH ×2 (06:07→16:53)
[2017-08-22] MEDS: Insulin DETEMIR 100 UNIT/ML X5UNITS SQ SCH (09:08)
[2017-08-22] MEDS: Lisinopril 20 MG TABLET PO SCH (09:08)
[2017-08-22] MEDS: Aztreonam 2,000 MG in D5% in Water (Mini-Bag+) 100 ML IVPB SCH (09:09)
[2017-08-22] MEDS: Insulin LISPRO 300 UNITS/3 ML VIAL SQ SCH ×7 (09:10→20:48)
[2017-08-22 09:40] LABS: Basophils # 0.1 K/mcL (0.0-0.2); Basophils % 0.4 %; Eosinophils # 0.2 K/mcL (0.0-0.6); Eosinophils % 1.8 %; Hemoglobin 10.2 g/dL (11.5-15.4); Immature Granulocytes % 1.2 % (0-4); Lymphocytes # 1.5 K/mcL (0.6-4.6); Lymphocytes % 13.7 %; Mean Corpuscular HGB Conc 31.9 g/dL (31.6-35.5); Mean Corpuscular Hemoglobin 26.4 pg (28.0-33.3); Mean Corpuscular Volume 82.9 fL (83.0-100.0); Mean Platelet Volume 11.3 fL (9.4-12.4); Monocytes # 1.3 K/mcL (0.0-1.3); Monocytes % 11.7 %; Platelet Count 240 K/mcL (140-400); Red Blood Count 3.86 M/mcL (3.82-4.97); Red Cell Distribution Width 12.7 % (11.5-14.5); Segmented Neutrophils % 71.2 %
[2017-08-22 09:59] LABS: BUN/Creatinine Ratio 22 (6-26); Blood Urea Nitrogen 17 mg/dL (7-20); Calcium 8.5 mg/dL (8.6-10.8); Carbon Dioxide 22 mEq/L (19-29); Chloride 106 mEq/L (98-109); Glucose 224 mg/dL (70-99); Osmolality,Calculated 293 (280-300); Potassium 4.1 mEq/L (3.5-4.5); Sodium 137 mEq/L (136-145); eGFR For African Americans > 60 (> 60); eGFR For Non-African Americans > 60 (> 60)
[2017-08-22] MEDS: Ondansetron 4 MG/2 ML VIAL IVP PRN (10:48)
--- NOTE | 2017-08-22 13:33 | Infectious Disease Progress No ---
Date of Encounter: 08/22/17 Time of Encounter: 13:31 - Assessment and Plan (1) Sepsis Current Visit: Yes Status: Acute The patient had two SIRS criteria on admission. Likely secondary to right foot infection. Improved. WBC improved. Tachycardia has resolved. Blood cultures drawn 08/19/17 are NGTD. Qualifiers: Sepsis type: sepsis due to unspecified organism Qualified Code(s): A41.9 - Sepsis, unspecified organism (2) Osteomyelitis Current Visit: Yes Status: Suspected Location: Right foot Causative organism GBS. Secondary to right foot DFU. ESR >130. CRP 142. CT of the right foot showed subcutaneous edema dorsally at the level of the 1st digit and 1st interspace. Podiatry consulted and took the patient to the OR 08/20/17 for I & D of the right foot. Operative note reviewed. No bone changes noted, but large amount of purulence was noted directly adjacent to the bone. Given the evidence of gross purulence and markedly elevated inflammatory markers , high index of suspicion for early OM. Continue Vancomycin IV. Pharmacy to dose. Goal trough ~15. Will plan on using Vancomycin for the duration of treatment due to the patient's PCN allergy. Discontinue Aztreonam. Continue wound care and activity restrictions as outlined by the podiatry team. Duration of treatment depends on the clinical picture, but likely 6 weeks of IV antibiotics. Consult social service liaison to assist with discharge planning. Consult VAT to switch EPIV out for PICC line. Get weekly CBC, BUN/Cr, ESR, CRP, and Vanc trough every Saturday for the duration of treatment. Weekly PICC care per protocol. Follow up with ID 09/09/17 at 0920. ID service will be unavailable until Saturday. Qualifiers: Osteomyelitis type: acute hematogenous Osteomyelitis location: foot Laterality: right Qualified Code(s): M86.071 - Acute hematogenous osteomyelitis, right ankle and foot (3) Cellulitis of foot Current Visit: Yes Status: Acute Location: Right foot. Causative organism unclear, cultures are pending. Improved. Continue antibiotics as above. (4) Hyperglycemia Current Visit: Yes Status: Acute FSBS 467 on admission. Patient reports poorly controlled blood sugars at home as well. Management per the primary team. (5) Diabetes Current Visit: No Status: Chronic Uncontrolled. HgbA1C >14.1%. Recommend aggressive glucose monitoring and control to promote wound healing and prevent re-infection. Qualifiers: Diabetes mellitus type: other specified (including SURESH) Diabetes mellitus complication status: with other specified complication Diabetes mellitus usp insulin use: with usp use Qualified Code(s): E13.69 - Other specified diabetes mellitus with other specified complication; Z79.4 - medical terminologist (current) use of insulin (6) Hypertension Current Visit: No Status: Chronic Qualifiers: Hypertension type: essential hypertension Qualified Code(s): I10 - Essential (primary) hypertension (7) Morbid obesity with BMI of 45.0-49.9, adult Current Visit: Yes Status: Acute - Subjective Interval history: Patient seen and examined. No acute events noted overnight. Patient resting quietly in bed. States overall she feels okay. Reports a headache at this time with nausea and one episode of emesis. Denies chest pain, shortness of breath, or cough. Denies diarrhea, states she has not had a BM since surgery. Denies urinary complaints. Reports intermittent right foot pain, none currently. Denies oral thrush or skin lesions. Infect Dis PN-Objective Data - Labs CBC & Chem 7: 08/22/17 09:24 08/22/17 09:24 Labs: Laboratory Results - last 24 hr 08/21/17 08/21/17 08/22/17 16:30 20:12 07:27 WBC RBC Hgb Hct MCV MCH MCHC RDW Plt Count MPV Immature Gran % Seg Neutrophils % Lymphocytes % Monocytes % Eosinophils % Basophils % Neutrophils # Lymphocytes # Monocytes # Eosinophils # Basophils # Sodium Potassium Chloride Carbon Dioxide BUN Creatinine Est GFR ( Amer) Est GFR (Non-Af Amer) BUN/Creatinine Ratio Glucose POC Glucose 86 154 H 167 H Calculated Osmolality Calcium 08/22/17 08/22/17 08/22/17 09:24 09:24 10:58 WBC 11.2 H RBC 3.86 Hgb 10.2 L Hct 32.0 L MCV 82.9 L MCH 26.4 L MCHC 31.9 RDW 12.7 Plt Count 240 MPV 11.3 Immature Gran % 1.2 Seg Neutrophils % 71.2 Lymphocytes % 13.7 Monocytes % 11.7 Eosinophils % 1.8 Basophils % 0.4 Neutrophils # 8.0 Lymphocytes # 1.5 Monocytes # 1.3 Eosinophils # 0.2 Basophils # 0.1 Sodium 137 Potassium 4.1 Chloride 106 Carbon Dioxide 22 BUN 17 Creatinine 0.76 Est GFR ( Amer) > 60 Est GFR (Non-Af Amer) > 60 BUN/Creatinine Ratio 22 Glucose 224 H POC Glucose 178 H Calculated Osmolality 293 Calcium 8.5 L Cultures: Cultures 08/20/17 20:20 Wound Culture - Final Right Foot Strep agalactiae - (Group B) 08/20/17 18:38 Urine Culture - Final Urine,Clean Catch No pathogens isolated. Serology 08/20/17 08/20/17 Range/Units 18:38 18:38 Urine Color Yellow (Yellow) Urine Clarity Turbid A (Clear) Urine pH 5.0 (5.0-8.0) pH Units Ur Specific [place] 1.028 H (1.010-1.025) Urine Protein >=300 H (Neg-Trace) mg/dL Urine Glucose (UA) >=1000 H (Normal) mg/dL Urine Ketones Negative (Negative) mg/dL Urine Blood Small H (Negative) Urine Nitrite Negative (Negative) Urine Bilirubin Moderate H (Negative) Urine Urobilinogen Normal (Normal) mg/dL Ur Leukocyte Esterase Small H (Negative) Urine Microscopic RBC 5-15 H (0-3) per hpf Urine Microscopic WBC 50-100 H (0-3) per hpf Ur Squamous Epith Cells Many H (None-Few) per lpf Amorphous Sediment Few (Few) Urine Bacteria Moderate H (None-Few) per hpf Hyaline Casts Moderate H (None-Few) per lpf Granular Casts Few H (None Seen) per lpf Urine Mucus Few (Few) Urine Yeast Many H (None Seen) per hpf Ur Culture Indicated? YES A (NO) Urine Test Negative (Negative) Exam - Constitutional Vitals: Temp Pulse Resp BP Pulse Ox 97.8 F 77 18 148/99 95 08/22/17 10:55 08/22/17 10:55 08/22/17 10:55 08/22/17 06:39 08/22/17 10:55 General appearance: cooperative, morbidly obese, no acute distress - Head Head exam: Present: atraumatic, normal inspection, normocephalic - Eye Eye exam: Present: EOMI, normal appearance, PERRL Pupils: Present: normal accommodation - ENT ENT exam: Present: mucous membranes moist - Neck Neck exam: Present: normal inspection - Respiratory Respiratory exam: Present: CTAB. Absent: rales, respiratory distress, rhonchi, wheezes - Cardiovascular Cardiovascular exam: Present: RRR, +S1, +S2 - GI/Abdominal GI/Abdominal exam: Present: distended (obese), normal bowel sounds, soft. Absent: tenderness - Extremities Exam Extremities exam: Present: normal inspection, pedal edema (1+ RLE), tenderness ( Right foot). Absent: joint swelling Additional comments: Right foot dressing C/D/I. - Neurological Exam Neurological exam: Present: alert, oriented X3, no focal deficits - Psychiatric Psychiatric exam: Present: normal affect, normal mood - Skin Skin exam: Present: dry, intact, normal color, warm - VTE Documentation of Mechanical Device: Intermittent pneumatic compression device Consult Discharge Plan - Plan Referrals: Celia Hall CNP [Primary Care Provider] - Felicia Lama CNP [Advanced Practice Nurse] - 09/09/17 9:20 am
[2017-08-22] MEDS ORDERED: Lidocaine -MPF 1% 5 ML AMPUL INFILT ONE (14:37)
--- NOTE | 2017-08-22 17:52 | Podiatry Progress Note ---
Date of Encounter: 08/22/17 Time of Encounter: 16:00 - Assessment and Plan (1) Osteomyelitis Status: Acute s/p Incision and drainage right foot Per 08/21/17 Patient will formal washout tomorrow in OR with - NPO after midnight Dressing removed and changed at bedside. Dorsal and plantar wounds flushed with saline and repacked. Dry dressing replaced with kerlex and SAMSON Patient tolerated well Dressing to be changed every 12 hours as ordered Continue compression with SAMSON Continue current antibiotic therapy as outlined per ID- positive for group B strep Patient will likely need 3-6 weeks IV antibiotic therapy Patient will need home health care for dressing changes once discharged Patient may be partial weight bearing to heel only. Will continue to follow Will need appointment with /ZACKERY Lama/ZACKERY Paulino in podiatry clinic after discharge (2) Diabetes Status: Chronic Ha1c >14 Patient educated on need for strict glucose management to promote healing and prevent complications Low carb, low sugar high protein diet covered Internal medicine working on glucose control while inpatient. Qualifiers: Diabetes mellitus type: type 2 Diabetes mellitus complication status: with other specified complication Diabetes mellitus residential insulin use: with residential use Qualified Code(s): E11.69 - Type 2 diabetes mellitus with other specified complication; Z79.4 - arch cushion press operator (current) use of insulin; Z79.4 - arch cushion press operator (current) use of insulin; Z79.4 - arch cushion press operator (current) use of insulin; Z79.4 - arch cushion press operator (current) use of insulin (3) Cellulitis of foot Status: Acute Subjective Interval history: post op day #2 Incision and drainage right foot. patient resting comfortably on arrival. Dressing intact, was changed at 4am. Patient was recently administered dilaudid. Patient denies any fevers, chills, n/v or flu like symptoms Objective - Vital Signs Vital Signs: Vital Signs Temp Pulse Resp BP Pulse Ox 08/22/17 15:00 97.6 F 83 15 148/88 97 08/22/17 10:55 97.8 F 77 18 95 08/22/17 06:39 98.0 F 85 18 148/99 98 08/21/17 22:31 97.8 F 87 15 113/63 95 08/21/17 19:21 98.0 F 86 15 135/83 99 Intake and Output 08/22/17 08/22/17 08/22/17 07:59 15:59 23:59 Intake Total 250 / 250 460 / 460 Output Total 0 / 0 300 / 300 Balance 250 / 250 160 / 160 Intake: IV Fluids 250 / 250 100 / 100 Azactam 2,000 MG In Dextrose 5% 100 / 100 (Minibag+) 100 ML 100 ML @ 200 mls/hr IVPB Q8HR [facility] Rx#: [id number] Vancocin 1,500 MG In Dextrose 5 250 / 250 % 250 ML @ 166.67 mls/hr IVPB Q12H [facility] Rx#:[id number] Oral 360 / 360 Output: Urine 0 / 0 300 / 300 Other: Meal Breakfast Percent of Meal Consumed 25% # Voids 2 # Bowel Movements 0 0 Weight 138 kg Blood Glucose* 167 178 90 Patient Weight 08/22/17 23:59 Weight 138 kg - Exam Exam: General Examination: CONSTITUTIONAL: Alert, oriented, in no acute distress, non-toxic. EXTREMITIES: CFT 3 seconds all toes. Edema +1 and pedal pulses palpable. NEUROLOGIC: Sensation to moderate touch only No calf pain with manual compression S/p I&D of right foot wound Packing removed, wound has deteriorated. Surgical opening connecting plantar and dorsal incisions has opened between toes #1 and #2 with exposure to underlying tissue and probe to bone. There is no drainage noted. No odor. Cellulitis continues surrounding surgical incision and extending to midfoot. - Lab Result Diagrams: 08/27/17 04:00 08/27/17 04:00 Labs: Abnormal lab results WBC 11.2 K/mcL (4.3-11.1) H 08/22/17 09:24 Hgb 10.2 g/dL (11.5-15.4) L 08/22/17 09:24 Hct 32.0 % (35.3-44.9) L 08/22/17 09:24 MCV 82.9 fL (83.0-100.0) L 08/22/17 09:24 MCH 26.4 pg (28.0-33.3) L 08/22/17 09:24 ESR >= 130 mm/hr (0-15) H 08/19/17 13:08 Glucose 224 mg/dL (70-99) H 08/22/17 09:24 POC Glucose 90 (58-89) H 08/22/17 16:38 Hemoglobin A1c >= 14.1 % (-5.6) H 08/20/17 04:30 Calcium 8.5 mg/dL (8.6-10.8) L 08/22/17 09:24 Magnesium 1.4 mg/dL (1.6-2.6) L 08/20/17 04:30 C-Reactive Protein 142 mg/L (Less than 5) H 08/19/17 13:08 Beta-Hydroxybutyric Acd > 2.00 mmol/L (0.02-0.27) H 08/19/17 13:08 Urine Clarity Turbid (Clear) A 08/20/17 18:38 Ur Specific [place] 1.028 (1.010-1.025) H 08/20/17 18:38 Urine Protein >=300 mg/dL (Neg-Trace) H 08/20/17 18:38 Urine Glucose (UA) >=1000 mg/dL (Normal) H 08/20/17 18:38 Urine Blood Small (Negative) H 08/20/17 18:38 Urine Bilirubin Moderate (Negative) H 08/20/17 18:38 Ur Leukocyte Esterase Small (Negative) H 08/20/17 18:38 Urine Microscopic RBC 5-15 per hpf (0-3) H 08/20/17 18:38 Urine Microscopic WBC 50-100 per hpf (0-3) H 08/20/17 18:38 Ur Squamous Epith Cells Many per lpf (None-Few) H 08/20/17 18:38 Urine Bacteria Moderate per hpf (None-Few) H 08/20/17 18:38 Hyaline Casts Moderate per lpf (None-Few) H 08/20/17 18:38 Granular Casts Few per lpf (None Seen) H 08/20/17 18:38 Urine Yeast Many per hpf (None Seen) H 08/20/17 18:38 Ur Culture Indicated? YES (NO) A 08/20/17 18:38 Microbiology, Last 48 Hours 08/20/17 20:20 Wound Culture - Final Right Foot Strep agalactiae - (Group B) 08/20/17 18:38 Urine Culture - Final Urine,Clean Catch No pathogens isolated. - VTE Documentation of Mechanical Device: Intermittent pneumatic compression device Consult Discharge Plan - Plan Instructions: Osteomyelitis (DC) Referrals: Sessions,Rober M, DPM [Partnered Physician] - 08/28/17 8:15 am Celia Hall CNP [Primary Care Provider] - 09/02/17 12:30 pm Felicia Lama CNP [Advanced Practice Nurse] - 09/09/17 9:20 am Prescriptions: amLODIPine [Norvasc] 10 mg PO DAILY #30 tablet OxyCODONE/APAP 5/325 [Percocet 5/325 MG] 1 each PO Q12HR PRN #10 tablet PRN Reason: Pain Vancomycin HCl in Dextrose 5 % [Vancomycin 1.5 Gram/250 ml-D5w] 1.5 gm IV 1-2XD #30 plast..bag
--- NOTE | 2017-08-22 17:55 | Internal Med Progress Note ---
Date of Encounter: 08/24/17 Time of Encounter: 10:00 - Assessment and plan (1) Cellulitis of foot Current Visit: Yes Status: Acute Assessment and plan: -CT of the right foot showed subcutaneous edema dorsally at the level of the 1st digit and 1st interspace. -Podiatry consulted and took the patient to the OR 08/20/17 for I & D of the right foot. No bone changes noted, but large amount of purulence was noted directly adjacent to the bone. -ID consulted and suspects given the evidence of gross purulence and markedly elevated inflammatory markers, high index of suspicion for early OM. -Recommendations to continue Vancomycin IV for the duration of treatment due to the patient's PCN allergy; recommendations to continue Aztreonam. -Recommendations for 6 weeks of IV antibiotics. -Will consult VAT to switch EPIV out for PICC line. -Follow up with ID 09/09/17 at 0920. (2) Sepsis Current Visit: Yes Status: Acute Assessment and plan: Resolved Qualifiers: Sepsis type: sepsis due to unspecified organism Qualified Code(s): A41.9 - Sepsis, unspecified organism (3) Hypothyroidism Current Visit: No Status: Suspected Assessment and plan: Continue home medications. Qualifiers: Hypothyroidism type: acquired Qualified Code(s): E03.9 - Hypothyroidism, unspecified (4) Hypertension Current Visit: No Status: Chronic Assessment and plan: Continue home medications. Qualifiers: Hypertension type: essential hypertension Qualified Code(s): I10 - Essential (primary) hypertension (5) Diabetes mellitus type 2 in obese Current Visit: Yes Status: Acute Assessment and plan: Continue home medications. (6) Morbid obesity with BMI of 45.0-49.9, adult Current Visit: Yes Status: Acute Assessment and plan: Lifestyle modifications. - Subjective Interval history: No acute events overnight. - Constitutional Vitals: Temp Pulse Resp BP Pulse Ox 97.6 F 83 15 148/88 97 08/22/17 15:00 08/22/17 15:00 08/22/17 15:00 08/22/17 15:00 08/22/17 15:00 General appearance: Present: A&O X 3, morbidly obese, pleasant, no acute distress, answers questions appropriately - Respiratory Respiratory exam: Present: CTAB. Absent: accessory muscle use, rales, rhonchi, wheezes - Cardiovascular Cardiovascular exam: Present: RRR, +S1, +S2. Absent: diastolic murmur, gallop, rubs, systolic murmur Internal Medicine: Result - Labs CBC & Chem 7: 08/24/17 09:49 08/24/17 09:49 Labs: Short CBC 08/22/17 Range/Units 09:24 WBC 11.2 H (4.3-11.1) K/mcL Hgb 10.2 L (11.5-15.4) g/dL Hct 32.0 L (35.3-44.9) % Plt Count 240 (140-400) K/mcL Neutrophils # 8.0 (1.6-8.9) K/mcL BMP 08/22/17 09:24 Sodium 137 Potassium 4.1 Chloride 106 Carbon Dioxide 22 BUN 17 Creatinine 0.76 Glucose 224 H Calcium 8.5 L - ABG Interpretation ABG results: PT/INR, D-dimer PT 11.2 Seconds (9.4-12.1) 08/20/17 10:53 - VTE Documentation of Mechanical Device: Intermittent pneumatic compression device Consult Discharge Plan - Plan Referrals: Celia Hall BACK JOINER [Primary Care Provider] - Felicia Lama CNP [Advanced Practice Nurse] - 09/09/17 9:20 am Prescriptions: Vancomycin HCl in Dextrose 5 % [Vancomycin 1.5 Gram/250 ml-D5w] 1.5 gm IV 1-2XD #30 plast..bag
[2017-08-22] MEDS: *HR* HYDROcodone/Acet 5/325 mg TABLET PO PRN (20:22)
[2017-08-23] MEDS: *HR* HYDROcodone/Acet 5/325 mg TABLET PO PRN (04:25)
[2017-08-23] MEDS: Vancomycin 1,500 MG in D5% in Water 250 ML IVPB SCH ×2 (05:28→16:16)
[2017-08-23] MEDS: *HR* HYDROmorphone (PF) 1 MG/ML SYRINGE IVP PRN ×3 (05:38→16:16)
[2017-08-23] MEDS: Lisinopril 20 MG TABLET PO SCH (09:34)
[2017-08-23] MEDS: Insulin LISPRO 300 UNITS/3 ML VIAL SQ SCH ×6 (09:35→16:38)
[2017-08-23] MEDS: Insulin DETEMIR 100 UNIT/ML X5UNITS SQ SCH (09:35)
--- NOTE | 2017-08-23 12:22 | Anesthesia Evaluation PreOp ---
Date of Encounter: 08/23/17 Time of Encounter: 12:20 - Past History Planned Operation: I&D Right Foot Cardiac History: Denies any Significant Hx Pulmonary History: Former smoker ([place] 11 years ago) RN LPN LVN History: Denies Any Significant HX Other Medical History: Diabetes Type II, Thyroid (Hypothyroid), Other (Morbid obesity BMI-46.1) Anesthesia History: No Prior Anesthetic Complications, Past Anesthesia (Left Great toe Amp, I&D Right Foot) : No Test: Negative (08/20/2017) Alcohol Use: none Drug use: none Medications and Allergies Insulin ASPART [NovoLOG] 0 units SQ TID 08/04/16 [History] Insulin Glargine [Lantus] 60 units SQ QAM 08/04/16 [History] Levothyroxine [Synthroid] 75 mcg PO DAILY 08/04/16 [History] Doxycycline Hyclate [Vibramycin] 100 mg PO Q12H 08/19/17 [History] Lisinopril [Zestril] 20 mg PO DAILY 08/19/17 [History] 3 Allergy/AdvReac Type Severity Reaction Status Date / Time Amoxicillin Allergy Swelling Verified 02/19/17 18:04 of Lip/Tongue/Throat ampicillin Allergy Swelling Verified 02/19/17 18:04 of Lip/Tongue/Throat Sulfa (Sulfonamide Allergy Rash Verified 02/19/17 18:04 Antibiotics) sulfamethoxazole Allergy Rash Verified 02/19/17 18:04 [From Bactrim] trimethoprim [From Bactrim] Allergy Rash Verified 02/19/17 18:04 Erythromycin Base AdvReac Unknown Itching Verified 02/19/17 18:04 Penicillins [PCN] AdvReac Itching Verified 02/19/17 18:04 - Meds/Allergy Pre-op Review Medications Reviewed: Yes Allergies Reviewed: Yes Beta Blockers on Current Med List: No Anesthesia Results - Labs 08/22/17 09:24 08/22/17 09:24 Anesthesia Exam O2 Sat Weight 137.529 kg O2 Sat by Pulse Oximetry 96 O2 Sat by Pulse Oximetry 95 O2 Sat by Pulse Oximetry 92 O2 Sat by Pulse Oximetry 95 O2 Sat by Pulse Oximetry 98 O2 Sat by Pulse Oximetry 97 Vital Signs Temp Pulse Resp BP Pulse Ox 98.2 F 95 16 157/85 98 08/19/17 12:24 08/19/17 12:24 08/19/17 12:24 08/19/17 12:24 08/19/17 12:24 Vital Signs/O2 Sat, Most Current Temp Pulse Resp BP Pulse Ox 98.1 F 84 15 119/78 96 08/23/17 10:07 08/23/17 10:07 08/23/17 10:07 08/23/17 10:07 08/23/17 10:07 Height: 5'8'' Weight: 303# NPO (# of Hours): > 8 hrs Pain Scale: 0 Pain Scale Used: Numeric (1 - 10) - HEENT Pupil (Motor): Pupils equal, EOMI Mallampati: II Teeth: Missing Oral Opening: Greater than 3 - RN LPN LVN LOC: Oriented RN LPN LVN Motor: Normal RUE, Normal LUE, Normal RLE, Normal LLE, Normal Face RN LPN LVN Sensory: Normal: RUE, LUE, RLE, LLE, Face - Cardiac Rhythm: Regular Murmur: None JVD: No Carotid Bruit: No - Pulmonary Breath Sounds: bilateral Clear Respiratory Effort: Symmetrical Anesthesia Assess/Plan ASA Score: 3 Modified [place] Scale for Level of Consciousness: Cooperative, oriented, and tranquil Anesthetic Plan: General Autologous Blood: Yes Monitoring Plan: Standard Monitors Recovery Plan: PACU
--- NOTE | 2017-08-23 12:34 | Podiatry Progress Note ---
Date of Encounter: 08/23/17 Time of Encounter: 12:32 - Assessment and Plan (1) Osteomyelitis Current Visit: Yes Status: Suspected Patient was instructed that she needs an additional debridement. Patient was instructed that the surgery would be done and possible amputation if needed. Patient was also instructed that the infection could always return even after surgical intervention. Patient was informed of the risks and complications of surgery. These may include but are not limited to the following; nerve damage, numbness, tingling, RSD/CRPS, loss of motor function, loss of toe, loss of limb , loss of life, ischemia, wound healing issues, infection, scarring, keloid formation, continued pain, arthritis, non-union, mal-union, prominent hardware, displaced hardware, reaction to hardware, the need to remove hardware, bruising , continued limp, the need for future surgery, over correction, under correction , chronic swelling, the need for physical therapy, stiffness of joints, ulceration, slow healing, wound dehiscence, reaction to implant, reaction to sutures. The patient was informed of the possible conservative treatments available which may include but are not limited to the following: Orthotics, bracing, non -weight bearing, physical therapy, padding, taping, steroid injections, NSAIDS, casting. The patient was given the option to seek a second opinion. It was explained that surgery is an art and not an exact science therefore results cannot be guaranteed. All the patients questions and concerns were addressed. Patient agrees to have the surgery despite the possible risks and complications. Absolutely no guarantees were given or implied. After surgery the patient will likely need to be followed by infectious disease for PICC line and continued antibiotics. The patient will need to remain nonweightbearing during the initial postoperative course and possibly for the next 3-6 weeks after surgical intervention. The patient may have a wound VAC applied. The patient was instructed on the importance of maintaining her glucose and instructed that surgically we can drain abscesses and try and fix her foot but without her diligent control blood glucose and the other comorbidities the foot may not heal and would be more susceptible to further infections. Qualifiers: Osteomyelitis type: acute hematogenous Osteomyelitis location: foot Laterality: right Qualified Code(s): M86.071 - Acute hematogenous osteomyelitis, right ankle and foot Subjective Principal diagnosis: right foot infection Interval history: Pt relates that she has continued pain. Patient denies any other new complaints. Objective - Vital Signs Vital Signs: Vital Signs Temp Pulse Resp BP Pulse Ox 08/23/17 10:07 98.1 F 84 15 119/78 96 08/23/17 06:51 98.5 F 88 15 135/84 95 08/23/17 03:50 98.5 F 93 14 175/92 92 08/22/17 22:45 98.2 F 94 14 142/74 95 08/22/17 18:23 98.1 F 82 14 167/100 98 08/22/17 15:00 97.6 F 83 15 148/88 97 Intake and Output 08/22/17 08/23/17 08/23/17 23:59 07:59 15:59 Intake Total 730 / 730 120 / 120 0 / 0 Output Total 0 / 0 Balance 730 / 730 120 / 120 0 / 0 Intake: IV Fluids 250 / 250 Vancocin 1,500 MG In Dextrose 5 250 / 250 % 250 ML @ 166.67 mls/hr IVPB Q12H [facility] Rx#:[id number] Oral 480 / 480 120 / 120 0 / 0 Output: Urine 0 / 0 Other: Meal Dinner npo Percent of Meal Consumed 100% 0% # Voids 1 1 2 Weight 137.529 kg Blood Glucose* 214 233 195 Patient Weight 08/23/17 23:59 Weight 137.529 kg - Exam Exam: additional purulence and infection noted. CFT intact tot he digits. Continued pain with palpation. - Lab Result Diagrams: 08/22/17 09:24 08/22/17 09:24 Labs: Abnormal lab results WBC 11.2 K/mcL (4.3-11.1) H 08/22/17 09:24 Hgb 10.2 g/dL (11.5-15.4) L 08/22/17 09:24 Hct 32.0 % (35.3-44.9) L 08/22/17 09:24 MCV 82.9 fL (83.0-100.0) L 08/22/17 09:24 MCH 26.4 pg (28.0-33.3) L 08/22/17 09:24 ESR >= 130 mm/hr (0-15) H 08/19/17 13:08 Glucose 224 mg/dL (70-99) H 08/22/17 09:24 POC Glucose 195 (58-89) H 08/23/17 11:35 Hemoglobin A1c >= 14.1 % (-5.6) H 08/20/17 04:30 Calcium 8.5 mg/dL (8.6-10.8) L 08/22/17 09:24 Magnesium 1.4 mg/dL (1.6-2.6) L 08/20/17 04:30 C-Reactive Protein 142 mg/L (Less than 5) H 08/19/17 13:08 Beta-Hydroxybutyric Acd > 2.00 mmol/L (0.02-0.27) H 08/19/17 13:08 Urine Clarity Turbid (Clear) A 08/20/17 18:38 Ur Specific [place] 1.028 (1.010-1.025) H 08/20/17 18:38 Urine Protein >=300 mg/dL (Neg-Trace) H 08/20/17 18:38 Urine Glucose (UA) >=1000 mg/dL (Normal) H 08/20/17 18:38 Urine Blood Small (Negative) H 08/20/17 18:38 Urine Bilirubin Moderate (Negative) H 08/20/17 18:38 Ur Leukocyte Esterase Small (Negative) H 08/20/17 18:38 Urine Microscopic RBC 5-15 per hpf (0-3) H 08/20/17 18:38 Urine Microscopic WBC 50-100 per hpf (0-3) H 08/20/17 18:38 Ur Squamous Epith Cells Many per lpf (None-Few) H 08/20/17 18:38 Urine Bacteria Moderate per hpf (None-Few) H 08/20/17 18:38 Hyaline Casts Moderate per lpf (None-Few) H 08/20/17 18:38 Granular Casts Few per lpf (None Seen) H 08/20/17 18:38 Urine Yeast Many per hpf (None Seen) H 08/20/17 18:38 Ur Culture Indicated? YES (NO) A 08/20/17 18:38 Microbiology, Last 48 Hours 08/20/17 20:20 Wound Culture - Final Right Foot Strep agalactiae - (Group B) 08/20/17 18:38 Urine Culture - Final Urine,Clean Catch No pathogens isolated. - VTE Documentation of Mechanical Device: Intermittent pneumatic compression device Consult Discharge Plan - Plan Referrals: Celia Hall, D[employer] [Primary Care Provider] - Felicia Lama CNP [Advanced Practice Nurse] - 09/09/17 9:20 am
[2017-08-23] MEDS ORDERED: Lidocaine -MPF 2% 2 ML VIAL ONE (12:41)
[2017-08-23] MEDS ORDERED: Dexamethasone 4 MG/ML VIAL ONE (12:41)
[2017-08-23] MEDS ORDERED: *HR* Midazolam HCl 2 MG/2 ML VIAL ONE ×2 (12:41→12:43)
[2017-08-23] MEDS ORDERED: *HR* FentaNYL (PF) 100 MCG/2 ML VIAL ONE (12:41)
[2017-08-23] MEDS ORDERED: Ondansetron 4 MG/2 ML VIAL ONE (12:41)
[2017-08-23] MEDS ORDERED: *HR* Propofol 200 MG/20 ML VIAL IVP ONE ×2 (12:41→13:11)
[2017-08-23] MEDS ORDERED: Bupivacaine/Clonidine Syringe 1 EACH SYRINGE ONE (12:48)
[2017-08-23] MEDS ORDERED: *HR* HYDROmorphone (PF) 1 MG/ML SYRINGE IVP PRN (13:34)
[2017-08-23] MEDS ORDERED: *HR* Promethazine 25 MG/ML VIAL IVP PRN (13:34)
--- NOTE | 2017-08-23 14:29 | Anesthesia Evaluation Post Op ---
Date of Encounter: 08/23/17 Time of Encounter: 14:28 - Vital Signs Vital Signs: Vital Signs/O2 Sat, Most Current Temp Pulse Resp BP Pulse Ox 97.4 F L 77 14 131/73 99 08/23/17 14:22 08/23/17 14:22 08/23/17 14:22 08/23/17 14:08/23/17 14:22 - Lungs Lungs: Clear Ascult./Percussion - Airway Airway: Non-obstructed - Cardiovascular Regular Rate - Mental Status Mental Status: Alert & Oriented, Answers Appropriately - Pain Pain Scale: 0 Pain Scale used: Numeric (1 - 10) - Nausea Vomiting Nausea Vomiting: Not Present - Hydration Hydration: Ice chips, Has not voided - Discharge PostOp Status: Transfer Patient to floor
--- NOTE | 2017-08-23 17:55 | Operative Note ---
Date of procedure: 08/23/17 Pre-op diagnosis: Infection right foot Post-op diagnosis: same Procedure: Irrigation and debridement, right foot with application of wound VAC Anesthesia: AURA Surgeon: Rober Lo Estimated blood loss (cc): 5 Condition: stable Disposition: PACU Procedure in Detail: The patient was administered IV antibiotics. The patient was transported to the operative room and placed on operating table. Following anesthesia the extremity was scrubbed prepped and draped in the usual aseptic fashion. A timeout was performed. There is noted to be more ischemic, nonviable, necrotic tissue and it is likely not healing due to the patient's A1c. The additional necrotic infected-looking tissue was at the first interspace. The incision was connected from dorsal to plantar due to the necrotic tissue at the interspace and the incision was widened on the dorsal and plantar aspect approximately 1 cm. After adequate visualization of the necrotic tissue in the interspace in between the metatarsals was more easily identified a Misonix debrider was utilized to debride the necrotic, nonviable, infected tissue. The debridement consisted of epidermis, dermis, subcutaneous, fascia, tendinous structures. The size of the incision was approximately 6 cm from the dorsal to the plantar aspect of the interspace. The site was irrigated with copious amounts of normal saline. No excessive bleeding was noted. The lower extremity was raised to 60 degrees for hemostasis and exsanguinated utilizing an Esmarch bandage. This was done to aid in applying the wound VAC to minimize any bleeding. The pneumatic tourniquet was inflated. The leg was lowered to the table. A wound VAC was applied as well as a dry sterile dressing. The pneumatic tourniquet was deflated and a hyperemic response was noted to all digits. The patient tolerated the procedure and anesthesia well and was transported to the recovery room with vital signs stable and vascular status intact to both feet. The patient will be readmitted to the floor per anesthesia. Postoperative plan: The patient is okay for discharge once antibiotic coverage set up by infectious disease, and the patient has wound VAC changes on Saturday, Saturday, Saturday. Patient will minimize weightbearing to the forefoot that is okay to place a small amount of weight on the heel. The patient will need to follow up one week after discharge in clinic
--- NOTE | 2017-08-23 18:16 | Internal Med Progress Note ---
Date of Encounter: 08/24/17 Time of Encounter: 10:00 - Assessment and plan (1) Cellulitis of foot Current Visit: Yes Status: Acute Assessment and plan: -CT of the right foot showed subcutaneous edema dorsally at the level of the 1st digit and 1st interspace. -Podiatry consulted and took the patient to the OR 08/20/17 for I & D of the right foot. No bone changes noted, but large amount of purulence was noted directly adjacent to the bone. -Dietary intake and take patient to OR on 08/23/17 for rrigation and debridement , right foot with application of wound VAC. -ID consulted and suspects given the evidence of gross purulence and markedly elevated inflammatory markers, high index of suspicion for early OM. -Recommendations to continue Vancomycin IV for the duration of treatment due to the patient's PCN allergy. -Recommendations for 6 weeks of IV antibiotics. -Follow up with ID 09/09/17 at 0920. (2) Sepsis Current Visit: Yes Status: Acute Assessment and plan: Resolved Qualifiers: Sepsis type: sepsis due to unspecified organism Qualified Code(s): A41.9 - Sepsis, unspecified organism (3) Hypothyroidism Current Visit: No Status: Suspected Assessment and plan: Continue home medications. Qualifiers: Hypothyroidism type: acquired Qualified Code(s): E03.9 - Hypothyroidism, unspecified (4) Hypertension Current Visit: No Status: Chronic Assessment and plan: Continue home medications. Qualifiers: Hypertension type: essential hypertension Qualified Code(s): I10 - Essential (primary) hypertension (5) Diabetes mellitus type 2 in obese Current Visit: Yes Status: Acute Assessment and plan: Continue home medications. (6) Morbid obesity with BMI of 45.0-49.9, adult Current Visit: Yes Status: Acute Assessment and plan: Lifestyle modifications. - Subjective Interval history: No acute events overnight. - Constitutional Vitals: Temp Pulse Resp BP Pulse Ox 98.2 F 83 14 165/107 94 08/23/17 16:48 08/23/17 16:48 08/23/17 16:48 08/23/17 16:48 08/23/17 16:48 General appearance: Present: A&O X 3, morbidly obese, pleasant, no acute distress, answers questions appropriately - Respiratory Respiratory exam: Present: CTAB. Absent: accessory muscle use, rales, rhonchi, wheezes - Cardiovascular Cardiovascular exam: Present: RRR, +S1, +S2. Absent: diastolic murmur, gallop, rubs, systolic murmur Internal Medicine: Result - Labs CBC & Chem 7: 08/24/17 09:49 08/24/17 09:49 - ABG Interpretation ABG results: PT/INR, D-dimer PT 11.2 Seconds (9.4-12.1) 08/20/17 10:53 - VTE Documentation of Mechanical Device: Intermittent pneumatic compression device Consult Discharge Plan - Plan Referrals: Celia Hall, [employer] [Primary Care Provider] - Felicia Lama CNP [Advanced Practice Nurse] - 09/09/17 9:20 am Prescriptions: Vancomycin HCl in Dextrose 5 % [Vancomycin 1.5 Gram/250 ml-D5w] 1.5 gm IV 1-2XD #30 plast..bag
[2017-08-24] MEDS: *HR* HYDROmorphone (PF) 1 MG/ML SYRINGE IVP PRN (04:53)
[2017-08-24] MEDS: Lisinopril 20 MG TABLET PO SCH (07:45)
[2017-08-24] MEDS: Insulin LISPRO 300 UNITS/3 ML VIAL SQ SCH ×8 (08:11→22:50)
[2017-08-24] MEDS: Vancomycin 1,500 MG in D5% in Water 250 ML IVPB SCH ×2 (08:32→17:05)
[2017-08-24] MEDS: Insulin DETEMIR 100 UNIT/ML X5UNITS SQ SCH (09:43)
--- NOTE | 2017-08-24 10:09 | Podiatry Progress Note ---
Date of Encounter: 08/24/17 Time of Encounter: 09:15 Subjective Principal diagnosis: right foot infection Interval history: s/p excisional debridement and application of wound vac. denies f/sob/cp/calf pain. says she has felt nauseous and vomited 3x overnight and says the anti- nausea and vomiting medications make it worse. she says the hospitalist has tried multiple. she denies f/c/n/v/sob. wound vac functioning no leak on 125 mm Hg continuous. Objective - Vital Signs Vital Signs: Vital Signs Temp Pulse Resp BP Pulse Ox 08/24/17 07:45 94 08/24/17 07:18 98.1 F 79 17 147/82 94 08/24/17 05:28 98.1 F 81 14 165/101 94 08/23/17 22:40 98.1 F 83 14 149/89 91 08/23/17 16:48 98.2 F 83 14 165/107 94 08/23/17 15:46 98.1 F 82 14 164/98 98 08/23/17 14:22 97.4 F L 77 14 131/73 99 08/23/17 14:12 97.4 F L 76 16 135/79 98 08/23/17 14:02 78 14 143/89 99 08/23/17 13:52 77 13 145/90 99 08/23/17 13:42 99.5 F 86 20 128/76 93 08/23/17 10:07 98.1 F 84 15 119/78 96 Intake and Output 08/23/17 08/24/17 08/24/17 23:59 07:59 15:59 Intake Total 490 / 490 0 / 0 370 / 370 Output Total 0 / 0 0 / 0 Balance 490 / 490 0 / 0 370 / 370 Intake: IV Fluids 250 / 250 250 / 250 Vancocin 1,500 MG In Dextrose 5 250 / 250 250 / 250 % 250 ML @ 166.67 mls/hr IVPB Q12H [facility] Rx#:[id number] Oral 240 / 240 0 / 0 120 / 120 Output: Urine 0 / 0 0 / 0 Other: Meal Breakfast Percent of Meal Consumed 100% Weight 136.985 kg Blood Glucose* 143 115 Patient Weight 08/24/17 23:59 Weight 136.985 kg - Lab Result Diagrams: 08/22/17 09:24 08/22/17 09:24 Labs: Abnormal lab results WBC 11.2 K/mcL (4.3-11.1) H 08/22/17 09:24 Hgb 10.2 g/dL (11.5-15.4) L 08/22/17 09:24 Hct 32.0 % (35.3-44.9) L 08/22/17 09:24 MCV 82.9 fL (83.0-100.0) L 08/22/17 09:24 MCH 26.4 pg (28.0-33.3) L 08/22/17 09:24 ESR >= 130 mm/hr (0-15) H 08/19/17 13:08 Glucose 224 mg/dL (70-99) H 08/22/17 09:24 POC Glucose 115 (58-89) H 08/24/17 07:18 Hemoglobin A1c >= 14.1 % (-5.6) H 08/20/17 04:30 Calcium 8.5 mg/dL (8.6-10.8) L 08/22/17 09:24 Magnesium 1.4 mg/dL (1.6-2.6) L 08/20/17 04:30 C-Reactive Protein 142 mg/L (Less than 5) H 08/19/17 13:08 Beta-Hydroxybutyric Acd > 2.00 mmol/L (0.02-0.27) H 08/19/17 13:08 Urine Clarity Turbid (Clear) A 08/20/17 18:38 Ur Specific [place] 1.028 (1.010-1.025) H 08/20/17 18:38 Urine Protein >=300 mg/dL (Neg-Trace) H 08/20/17 18:38 Urine Glucose (UA) >=1000 mg/dL (Normal) H 08/20/17 18:38 Urine Blood Small (Negative) H 08/20/17 18:38 Urine Bilirubin Moderate (Negative) H 08/20/17 18:38 Ur Leukocyte Esterase Small (Negative) H 08/20/17 18:38 Urine Microscopic RBC 5-15 per hpf (0-3) H 08/20/17 18:38 Urine Microscopic WBC 50-100 per hpf (0-3) H 08/20/17 18:38 Ur Squamous Epith Cells Many per lpf (None-Few) H 08/20/17 18:38 Urine Bacteria Moderate per hpf (None-Few) H 08/20/17 18:38 Hyaline Casts Moderate per lpf (None-Few) H 08/20/17 18:38 Granular Casts Few per lpf (None Seen) H 08/20/17 18:38 Urine Yeast Many per hpf (None Seen) H 08/20/17 18:38 Ur Culture Indicated? YES (NO) A 08/20/17 18:38 Microbiology, Last 48 Hours 08/20/17 20:20 Anaerobic Culture - Preliminary Right Foot At this time, no anaerobic growth is present. The culture will be finalized after 5 days of incubation. 08/20/17 20:20 Wound Culture - Final Right Foot Strep agalactiae - (Group B) 08/20/17 18:38 Urine Culture - Final Urine,Clean Catch No pathogens isolated. - VTE Documentation of Mechanical Device: Intermittent pneumatic compression device Consult Discharge Plan - Plan Referrals: Celia Hall CNP [Primary Care Provider] - Felicia Lama CNP [Advanced Practice Nurse] - 09/09/17 9:20 am Prescriptions: Vancomycin HCl in Dextrose 5 % [Vancomycin 1.5 Gram/250 ml-D5w] 1.5 gm IV 1-2XD #30 plast..bag
[2017-08-24 10:12] LABS: Basophils # 0.1 K/mcL (0.0-0.2); Basophils % 0.5 %; Eosinophils # 0.2 K/mcL (0.0-0.6); Hematocrit 30.2 % (35.3-44.9); Hemoglobin 9.4 g/dL (11.5-15.4); Immature Granulocytes % 0.6 % (0-4); Lymphocytes # 2.4 K/mcL (0.6-4.6); Lymphocytes % 24.4 %; Mean Corpuscular HGB Conc 31.1 g/dL (31.6-35.5); Mean Corpuscular Hemoglobin 26.5 pg (28.0-33.3); Mean Corpuscular Volume 85.1 fL (83.0-100.0); Mean Platelet Volume 10.6 fL (9.4-12.4); Monocytes # 1.1 K/mcL (0.0-1.3); Monocytes % 11.2 %; Neutrophils # 6.1 K/mcL (1.6-8.9); Platelet Count 292 K/mcL (140-400); Red Blood Count 3.55 M/mcL (3.82-4.97); Red Cell Distribution Width 12.3 % (11.5-14.5); Segmented Neutrophils % 61.3 %
[2017-08-24] MEDS ORDERED: Acetaminophen 325 MG TABLET PO PRN (10:12)
[2017-08-24 11:15] LABS: BUN/Creatinine Ratio 20 (6-26); Blood Urea Nitrogen 15 mg/dL (7-20); Calcium 8.8 mg/dL (8.6-10.8); Carbon Dioxide 29 mEq/L (19-29); Chloride 105 mEq/L (98-109); Glucose 139 mg/dL (70-99); Osmolality,Calculated 295 (280-300); Potassium 3.5 mEq/L (3.5-4.5); Sodium 141 mEq/L (136-145); eGFR For African Americans > 60 (> 60); eGFR For Non-African Americans > 60 (> 60)
[2017-08-24 11:37] LABS: Thyroid Stimulating Hormone 3.295 mcIU/mL (0.350-4.840)
--- NOTE | 2017-08-24 15:49 | Internal Med Progress Note ---
Date of Encounter: 08/24/17 Time of Encounter: 10:00 - Assessment and plan (1) Cellulitis of foot Current Visit: Yes Status: Acute Assessment and plan: -CT of the right foot showed subcutaneous edema dorsally at the level of the 1st digit and 1st interspace. -Podiatry consulted and took the patient to the OR 08/20/17 for I & D of the right foot. No bone changes noted, but large amount of purulence was noted directly adjacent to the bone. -Dietary intake and take patient to OR on 08/23/17 for rrigation and debridement , right foot with application of wound VAC. -ID consulted and suspects given the evidence of gross purulence and markedly elevated inflammatory markers, high index of suspicion for early OM. -Recommendations to continue Vancomycin IV for the duration of treatment due to the patient's PCN allergy. -Recommendations for 6 weeks of IV antibiotics. -Follow up with ID 09/09/17 at 0920. (2) Sepsis Current Visit: Yes Status: Acute Assessment and plan: Resolved Qualifiers: Sepsis type: sepsis due to unspecified organism Qualified Code(s): A41.9 - Sepsis, unspecified organism (3) Hypothyroidism Current Visit: No Status: Suspected Assessment and plan: -TSH within normal limits. -Continue home medications. Qualifiers: Hypothyroidism type: acquired Qualified Code(s): E03.9 - Hypothyroidism, unspecified (4) Hypertension Current Visit: No Status: Chronic Assessment and plan: -Blood pressures were elevated overnight but now within normal limits. -Continue home medications. Qualifiers: Hypertension type: essential hypertension Qualified Code(s): I10 - Essential (primary) hypertension (5) Diabetes mellitus type 2 in obese Current Visit: Yes Status: Acute Assessment and plan: -Blood glucose levels now controlled. -Continue home medications. (6) Morbid obesity with BMI of 45.0-49.9, adult Current Visit: Yes Status: Acute Assessment and plan: Lifestyle modifications. (7) Osteomyelitis Current Visit: Yes Status: Acute Assessment and plan: -Due to cellulitis of foot Qualifiers: Osteomyelitis location: unspecified site Qualified Code(s): M86.9 - Osteomyelitis, unspecified - Subjective Interval history: Patient's blood pressures were elevated overnight and now with headache. - Constitutional Vitals: Temp Pulse Resp BP Pulse Ox 97.7 F 87 16 153/90 95 08/24/17 15:05 09/30/17 15:05 08/24/17 15:05 08/24/17 15:05 08/24/17 15:05 General appearance: Present: A&O X 3, morbidly obese, pleasant, no acute distress, answers questions appropriately - Respiratory Respiratory exam: Present: CTAB. Absent: accessory muscle use, rales, rhonchi, wheezes - Cardiovascular Cardiovascular exam: Present: RRR, +S1, +S2. Absent: diastolic murmur, gallop, rubs, systolic murmur Internal Medicine: Result - Labs CBC & Chem 7: 08/24/17 09:49 08/24/17 09:49 Labs: Short CBC 08/24/17 Range/Units 09:49 WBC 10.0 (4.3-11.1) K/mcL Hgb 9.4 L (11.5-15.4) g/dL Hct 30.2 L (35.3-44.9) % Plt Count 292 (140-400) K/mcL Neutrophils # 6.1 (1.6-8.9) K/mcL BMP 08/24/17 09:49 Sodium 141 Potassium 3.5 Chloride 105 Carbon Dioxide 29 BUN 15 Creatinine 0.75 Glucose 139 H Calcium 8.8 - ABG Interpretation ABG results: PT/INR, D-dimer PT 11.2 Seconds (9.4-12.1) 08/20/17 10:53 - VTE Documentation of Mechanical Device: Intermittent pneumatic compression device Consult Discharge Plan - Plan Referrals: Celia Hall CNP [Primary Care Provider] - Felicia Lama CNP [Advanced Practice Nurse] - 09/09/17 9:20 am Prescriptions: Vancomycin HCl in Dextrose 5 % [Vancomycin 1.5 Gram/250 ml-D5w] 1.5 gm IV 1-2XD #30 plast..bag
[2017-08-24] MEDS: *HR* OxyCODONE/APAP 5/325 TABLET PO PRN (17:37)
[2017-08-25] MEDS: Vancomycin 1,500 MG in D5% in Water 250 ML IVPB SCH ×2 (06:44→16:53)
[2017-08-25] MEDS: Lisinopril 20 MG TABLET PO SCH (07:55)
[2017-08-25] MEDS: Insulin LISPRO 300 UNITS/3 ML VIAL SQ SCH ×6 (07:55→16:48)
[2017-08-25] MEDS: Insulin DETEMIR 100 UNIT/ML X5UNITS SQ SCH (09:48)
[2017-08-25 10:14] LABS: Basophils # 0.1 K/mcL (0.0-0.2); Basophils % 0.6 %; Eosinophils # 0.2 K/mcL (0.0-0.6); Eosinophils % 1.8 %; Hemoglobin 9.2 g/dL (11.5-15.4); Immature Granulocytes % 0.5 % (0-4); Lymphocytes # 1.9 K/mcL (0.6-4.6); Lymphocytes % 16.5 %; Mean Corpuscular HGB Conc 31.7 g/dL (31.6-35.5); Mean Corpuscular Hemoglobin 26.7 pg (28.0-33.3); Mean Corpuscular Volume 84.3 fL (83.0-100.0); Mean Platelet Volume 10.4 fL (9.4-12.4); Monocytes # 1.2 K/mcL (0.0-1.3); Monocytes % 10.7 %; Neutrophils # 7.9 K/mcL (1.6-8.9); Platelet Count 300 K/mcL (140-400); Red Blood Count 3.44 M/mcL (3.82-4.97); Red Cell Distribution Width 12.4 % (11.5-14.5); Segmented Neutrophils % 69.9 %
[2017-08-25 10:26] LABS: BUN/Creatinine Ratio 20 (6-26); Blood Urea Nitrogen 15 mg/dL (7-20); Calcium 8.7 mg/dL (8.6-10.8); Carbon Dioxide 28 mEq/L (19-29); Chloride 102 mEq/L (98-109); Glucose 119 mg/dL (70-99); Osmolality,Calculated 288 (280-300); Potassium 3.5 mEq/L (3.5-4.5); Sodium 138 mEq/L (136-145); eGFR For African Americans > 60 (> 60); eGFR For Non-African Americans > 60 (> 60)
--- NOTE | 2017-08-25 17:53 | Internal Med Progress Note ---
Date of Encounter: 08/25/17 Time of Encounter: 11:00 - Assessment and plan (1) Cellulitis of foot Current Visit: Yes Status: Acute Assessment and plan: -Patient noted to have cellulitis with concerns for osteomyelitis. -Podiatry is following and patient has been taken to the OR twice for incision and drainage with irrigation. -Patient will continue a 6 week course of IV vancomycin as an outpatient. (2) Sepsis Current Visit: Yes Status: Acute Assessment and plan: -Concerns for sepsis due to the above -Continue IV antibiotics. Qualifiers: Sepsis type: sepsis due to unspecified organism Qualified Code(s): A41.9 - Sepsis, unspecified organism (3) Hypothyroidism Current Visit: No Status: Suspected Assessment and plan: Continue home medications. Qualifiers: Hypothyroidism type: acquired Qualified Code(s): E03.9 - Hypothyroidism, unspecified (4) Hypertension Current Visit: No Status: Chronic Assessment and plan: -Pressures have been elevated on lisinopril. -Will start patient on metoprolol. Qualifiers: Hypertension type: essential hypertension Qualified Code(s): I10 - Essential (primary) hypertension (5) Diabetes mellitus type 2 in obese Current Visit: Yes Status: Acute Assessment and plan: Continue home medications. (6) Morbid obesity with BMI of 45.0-49.9, adult Current Visit: Yes Status: Acute Assessment and plan: Lifestyle modifications. - Subjective Interval history: No acute events overnight. Patient's blood pressures continued to be elevated however. - Constitutional Vitals: Temp Pulse Resp BP Pulse Ox 97.7 F 89 16 205/100 98 08/25/17 11:42 08/25/17 11:42 08/25/17 16:39 08/25/17 16:39 08/25/17 16:39 General appearance: Present: A&O X 3, morbidly obese, pleasant, no acute distress, answers questions appropriately - Respiratory Respiratory exam: Present: CTAB. Absent: accessory muscle use, rales, rhonchi, wheezes - Cardiovascular Cardiovascular exam: Present: RRR, +S1, +S2. Absent: diastolic murmur, gallop, rubs, systolic murmur Internal Medicine: Result - Labs CBC & Chem 7: 08/25/17 09:45 08/25/17 09:45 Labs: Short CBC 08/25/17 Range/Units 09:45 WBC 11.4 H (4.3-11.1) K/mcL Hgb 9.2 L (11.5-15.4) g/dL Hct 29.0 L (35.3-44.9) % Plt Count 300 (140-400) K/mcL Neutrophils # 7.9 (1.6-8.9) K/mcL BMP 08/25/17 09:45 Sodium 138 Potassium 3.5 Chloride 102 Carbon Dioxide 28 BUN 15 Creatinine 0.76 Glucose 119 H Calcium 8.7 - ABG Interpretation ABG results: PT/INR, D-dimer PT 11.2 Seconds (9.4-12.1) 08/20/17 10:53 - VTE Documentation of Mechanical Device: Intermittent pneumatic compression device Consult Discharge Plan - Plan Referrals: Celia Hall CNP [Primary Care Provider] - Felicia Lama CNP [Advanced Practice Nurse] - 09/09/17 9:20 am Prescriptions: Vancomycin HCl in Dextrose 5 % [Vancomycin 1.5 Gram/250 ml-D5w] 1.5 gm IV 1-2XD #30 plast..bag
[2017-08-25] MEDS: *HR* OxyCODONE/APAP 5/325 TABLET PO PRN (22:37)
[2017-08-26] MEDS: Vancomycin 1,500 MG in D5% in Water 250 ML IVPB SCH (05:21)
[2017-08-26] MEDS: Lisinopril 20 MG TABLET PO SCH (08:26)
[2017-08-26] MEDS: Insulin LISPRO 300 UNITS/3 ML VIAL SQ SCH ×8 (08:27→21:06)
[2017-08-26] MEDS: Insulin DETEMIR 100 UNIT/ML X5UNITS SQ SCH (08:29)
[2017-08-26] MEDS ORDERED: Bisacodyl 10 MG RECTAL SUPPOSITORY RC PRN (11:59)
--- NOTE | 2017-08-26 13:33 | Infectious Disease Progress No ---
Date of Encounter: 08/26/17 Time of Encounter: 13:27 - Assessment and Plan (1) Sepsis Current Visit: Yes Status: Acute The patient had two SIRS criteria on admission. Likely secondary to right foot infection. Improved. WBC normalized. Tachycardia has resolved. Blood cultures drawn 08/19/17 are negative. Qualifiers: Sepsis type: sepsis due to unspecified organism Qualified Code(s): A41.9 - Sepsis, unspecified organism (2) Osteomyelitis Current Visit: Yes Status: Suspected Location: Right foot Causative organism GBS. Secondary to right foot DFU. ESR >130. CRP 142. CT of the right foot showed subcutaneous edema dorsally at the level of the 1st digit and 1st interspace. Podiatry consulted and took the patient to the OR 08/20/17 for I & D of the right foot. Operative note reviewed. No bone changes noted, but large amount of purulence was noted directly adjacent to the bone. Given the evidence of gross purulence and markedly elevated inflammatory markers , high index of suspicion for early OM. Continue Vancomycin IV. Pharmacy to dose. Goal trough ~15. Will plan on using Vancomycin for the duration of treatment due to the patient's PCN allergy. Continue wound care and activity restrictions as outlined by the podiatry team. Duration of treatment depends on the clinical picture, but likely 6 weeks of IV antibiotics. director of rehabilitative services to assist with discharge planning. Get weekly CBC, BUN/Cr, ESR, CRP, and Vanc trough every Saturday for the duration of treatment. Weekly PICC care per protocol. Follow up with ID 09/09/17 at 0920. Qualifiers: Osteomyelitis type: acute hematogenous Osteomyelitis location: foot Laterality: right Qualified Code(s): M86.071 - Acute hematogenous osteomyelitis, right ankle and foot (3) Cellulitis of foot Current Visit: Yes Status: Acute Location: Right foot. Causative organism unclear, cultures are pending. Improved. Continue antibiotics as above. (4) Hyperglycemia Current Visit: Yes Status: Acute FSBS 467 on admission. Patient reports poorly controlled blood sugars at home as well. Management per the primary team. (5) Diabetes Current Visit: No Status: Chronic Uncontrolled. HgbA1C >14.1%. Recommend aggressive glucose monitoring and control to promote wound healing and prevent re-infection. Qualifiers: Diabetes mellitus type: other specified (including SURESH) Diabetes mellitus complication status: with other specified complication Diabetes mellitus senior living insulin use: with senior living use Qualified Code(s): E13.69 - Other specified diabetes mellitus with other specified complication; Z79.4 - senior care (current) use of insulin (6) Hypertension Current Visit: No Status: Chronic Qualifiers: Hypertension type: essential hypertension Qualified Code(s): I10 - Essential (primary) hypertension (7) Morbid obesity with BMI of 45.0-49.9, adult Current Visit: Yes Status: Acute - Subjective Interval history: Patient seen and examined. No acute events noted overnight. Patient resting quietly in bed. States overall she feels okay, awaiting discharge. Denies fevers , chills, or rigors. Denies chest pain, shortness of breath, or cough. Denies diarrhea, states she has not had a BM in 7 days. Denies urinary complaints. Reports intermittent right foot pain, none currently. Denies oral thrush or skin lesions. She does report some intermittent nausea, but denies any since yesterday. Infect Dis PN-Objective Data - Labs CBC & Chem 7: 08/25/17 09:45 08/25/17 09:45 Labs: Laboratory Results - last 24 hr 08/25/17 08/25/17 08/26/17 16:28 20:52 07:42 POC Glucose 233 H 160 H 160 H 08/26/17 11:11 POC Glucose 243 H Cultures: Cultures 08/20/17 20:20 Anaerobic Culture - Final Right Foot No anaerobes were recovered. 08/20/17 20:20 Wound Culture - Final Right Foot Strep agalactiae - (Group B) 08/20/17 18:38 Urine Culture - Final Urine,Clean Catch No pathogens isolated. Serology 08/20/17 08/20/17 Range/Units 18:38 18:38 Urine Color Yellow (Yellow) Urine Clarity Turbid A (Clear) Urine pH 5.0 (5.0-8.0) pH Units Ur Specific [place] 1.028 H (1.010-1.025) Urine Protein >=300 H (Neg-Trace) mg/dL Urine Glucose (UA) >=1000 H (Normal) mg/dL Urine Ketones Negative (Negative) mg/dL Urine Blood Small H (Negative) Urine Nitrite Negative (Negative) Urine Bilirubin Moderate H (Negative) Urine Urobilinogen Normal (Normal) mg/dL Ur Leukocyte Esterase Small H (Negative) Urine Microscopic RBC 5-15 H (0-3) per hpf Urine Microscopic WBC 50-100 H (0-3) per hpf Ur Squamous Epith Cells Many H (None-Few) per lpf Amorphous Sediment Few (Few) Urine Bacteria Moderate H (None-Few) per hpf Hyaline Casts Moderate H (None-Few) per lpf Granular Casts Few H (None Seen) per lpf Urine Mucus Few (Few) Urine Yeast Many H (None Seen) per hpf Ur Culture Indicated? YES A (NO) Urine Test Negative (Negative) Exam - Constitutional Vitals: Temp Pulse Resp BP Pulse Ox 97.6 F 80 18 169/87 99 08/26/17 10:58 08/26/17 10:58 08/26/17 10:58 08/26/17 10:58 08/26/17 10:58 General appearance: cooperative, morbidly obese, no acute distress - Head Head exam: Present: atraumatic, normal inspection, normocephalic - Eye Eye exam: Present: EOMI, normal appearance, PERRL Pupils: Present: normal accommodation - ENT ENT exam: Present: mucous membranes moist - Neck Neck exam: Present: normal inspection - Respiratory Respiratory exam: Present: CTAB. Absent: rales, respiratory distress, rhonchi, wheezes - Cardiovascular Cardiovascular exam: Present: RRR, +S1, +S2 - GI/Abdominal GI/Abdominal exam: Present: distended (obese), normal bowel sounds, soft. Absent: tenderness - Extremities Exam Extremities exam: Present: pedal edema (1+ RLE). Absent: joint swelling, tenderness Additional comments: Right foot dressing C/D/I. Wound VAC with small amount of serous dark brown drainage in the canister. - Neurological Exam Neurological exam: Present: alert, oriented X3, no focal deficits - Psychiatric Psychiatric exam: Present: normal affect, normal mood - Skin Skin exam: Present: dry, intact, normal color, warm - VTE Documentation of Mechanical Device: Intermittent pneumatic compression device Consult Discharge Plan - Plan Referrals: Celia Hall, [employer] [Primary Care Provider] - Felicia Lama CNP [Advanced Practice Nurse] - 09/09/17 9:20 am Prescriptions: Vancomycin HCl in Dextrose 5 % [Vancomycin 1.5 Gram/250 ml-D5w] 1.5 gm IV 1-2XD #30 plast..bag
[2017-08-26] MEDS: amLODIPine 5 MG TABLET PO SCH (13:45)
[2017-08-26] MEDS: *HR* OxyCODONE/APAP 5/325 TABLET PO PRN ×2 (13:45→22:02)
--- NOTE | 2017-08-26 15:56 | Discharge Summary ---
Date of Encounter: 08/26/17 Time of Encounter: 10:00 - Discharge Diagnosis (1) Cellulitis of foot Priority: Primary Status: Acute (2) Sepsis Priority: Primary Status: Acute Qualifiers: Sepsis type: sepsis due to unspecified organism Qualified Code(s): A41.9 - Sepsis, unspecified organism (3) Hypothyroidism Priority: Secondary Status: Suspected Qualifiers: Hypothyroidism type: acquired Qualified Code(s): E03.9 - Hypothyroidism, unspecified (4) Hypertension Priority: Secondary Status: Chronic Qualifiers: Hypertension type: essential hypertension Qualified Code(s): I10 - Essential (primary) hypertension (5) Diabetes mellitus type 2 in obese Priority: Secondary Status: Acute (6) Morbid obesity with BMI of 45.0-49.9, adult Priority: Primary Status: Acute - Discharge Medications Prescriptions: OxyCODONE/APAP 5/325 [Percocet 5/325 MG] 1 each PO Q12HR PRN #10 tablet PRN Reason: Pain amLODIPine [Norvasc] 10 mg PO DAILY #30 tablet Vancomycin HCl in Dextrose 5 % [Vancomycin 1.5 Gram/250 ml-D5w] 1.5 gm IV 1-2XD #30 plast..bag Home Medications: Insulin ASPART [NovoLOG] 0 units SQ TID 08/04/16 [History] Insulin Glargine [Lantus] 60 units SQ QAM 08/04/16 [History] Levothyroxine [Synthroid] 75 mcg PO DAILY 08/04/16 [History] Lisinopril [Zestril] 20 mg PO DAILY 08/19/17 [History] Vancomycin HCl in Dextrose 5 % [Vancomycin 1.5 Gram/250 ml-D5w] 1.5 gm IV 1-2XD #30 plast..bag 08/23/17 [Rx] OxyCODONE/APAP 5/325 [Percocet 5/325 MG] 1 each PO Q12HR PRN #10 tablet [Rx] amLODIPine [Norvasc] 10 mg PO DAILY #30 tablet 08/26/17 [Rx] Allergies/Adverse Reactions: 3 Allergy/AdvReac Type Severity Reaction Status Date / Time Amoxicillin Allergy Swelling Verified 02/19/17 18:04 of Lip/Tongue/Throat ampicillin Allergy Swelling Verified 02/19/17 18:04 of Lip/Tongue/Throat Sulfa (Sulfonamide Allergy Rash Verified 02/19/17 18:04 Antibiotics) sulfamethoxazole Allergy Rash Verified 02/19/17 18:04 [From Bactrim] trimethoprim [From Bactrim] Allergy Rash Verified 02/19/17 18:04 Erythromycin Base AdvReac Unknown Itching Verified 02/19/17 18:04 Penicillins [PCN] AdvReac Itching Verified 02/19/17 18:04 Date of admission: 08/19/17 20:22 Primary care physician: Celia Hall CNP Consults: 08/20/17 20:44 Consult to Infectious Diseases [CONS] Routine Consulting Provider: Infectious Disease Angela Reason for Consult: Right foot infection, patient with multiple antibiotic allergies Call Completed: No 08/22/17 14:38 Consult to Invasive Line Access Team [CONS] Routine Reason for Consult: Picc Line Insertion Line Type: PICC - Patient Status Disposition: Home, Self-Care Condition: Fair - Discharge Instructions Follow Up With: Celia Hall CNP [Primary Care Provider] - Felicia Lama CNP [Advanced Practice Nurse] - 09/09/17 9:20 am Hospital course: Patient is a 36 year old female with a past medical history significant for poorly controlled DM, HTN, and hypothyroidism, who was sent to the ER on by Podiatry (Dr. Lo) office due to infected diabetic foot ulcer. 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 Patient was admitted to the medical floor for further management and evaluation. During patients hospital stay, she was taking twice to the OR for incision and drainage by podiatry. Wound cultures were positive for group B strep and patient remained on IV vancomycin during her hospital stay. Patient will be discharged home to complete a 6 week course of IV vancomycin as an outpatient and to follow-up with podiatry. - Time Spent with Patient Total time spent providing and/or coordinating discharge services: Less than 30 minutes - Constitutional Vitals: Temp Pulse Resp BP Pulse Ox 97.6 F 87 18 167/84 97 08/26/17 14:57 08/26/17 14:57 08/26/17 14:57 08/26/17 14:57 08/26/17 14:57 General appearance: Present: A&O X 3, morbidly obese, pleasant, no acute distress, answers questions appropriately - Respiratory Respiratory exam: Present: CTAB. Absent: accessory muscle use, rales, rhonchi, wheezes - Cardiovascular Cardiovascular exam: Present: RRR, +S1, +S2. Absent: diastolic murmur, gallop, rubs, systolic murmur - VTE Documentation of Mechanical Device: Intermittent pneumatic compression device
[2017-08-26] MEDS ORDERED: *HR* Alteplase (Cathflo) 2 MG VIAL IVP PRN (17:22)
--- NOTE | 2017-08-26 17:33 | Podiatry Progress Note ---
Date of Encounter: 08/26/17 Time of Encounter: 12:00 - Assessment and Plan (1) Diabetes Current Visit: No Status: Chronic Qualifiers: Diabetes mellitus type: other specified (including SURESH) Diabetes mellitus complication status: with other specified complication Diabetes mellitus shelter insulin use: with adjunct faculty for medical terminology use Qualified Code(s): E13.69 - Other specified diabetes mellitus with other specified complication; Z79.4 - half-way (current) use of insulin (2) Cellulitis of foot Current Visit: Yes Status: Acute (3) Osteomyelitis Current Visit: Yes Status: Suspected Assessment: S/p I&D right foot 08/20/[address] Lo. Taken back to surgery on 08/23/17 for I&D right foot with wound vac. Wound vac connected to 125 mmhg continuous suction, 25 mls of bloody drainage observed to canister. Wound is full thickness, no pus, no odor. Tenderness to the plantar aspect of the left foot proximal to incision line. No fluctuance. WBC: 11.4 Microbiology 08/20/17 20:20 Anaerobic Culture - Final Right Foot No anaerobes were recovered. Microbiology, Last 48 Hours 08/20/17 20:20 Anaerobic Culture - Final Right Foot No anaerobes were recovered. 08/19/17 17:00 Blood Culture - Final Peripheral Venipuncture No growth. 08/19/17 18:33 Blood Culture - Final Peripheral Venipuncture No growth. Microbiology 08/20/17 20:20 Anaerobic Culture - Final Right Foot No anaerobes were recovered. 08/19/17 17:00 Blood Culture - Final Peripheral Venipuncture No growth. 08/19/17 18:33 Blood Culture - Final Peripheral Venipuncture No growth. 08/20/17 20:20 Wound Culture - Final Right Foot Strep agalactiae - (Group B) 08/20/17 18:38 Urine Culture - Final Urine,Clean Catch No pathogens isolated. Plan: Patient will require wound VAC at home with wound VAC changes every Saturday. Antibiotics per Infectious Disease recommendations. Minimize weight bearing to forefoot, place small amount of weight on right heel. Follow up in podiatry clinic with Dr. Lo 1 week of discharge from the hospital. Qualifiers: Osteomyelitis type: acute hematogenous Osteomyelitis location: foot Laterality: right Qualified Code(s): M86.071 - Acute hematogenous osteomyelitis, right ankle and foot Subjective Principal diagnosis: right foot infection Interval history: She is lying in bed with wound VAC intact to right foot. Status post I&D, right foot with wound VAC application by Dr. lo of 08/23/2017. Patient states she wants to go home. No c/o fever, chills or calf pain. Complaining of tenderness to the plantar aspect of the right foot. Objective - Vital Signs Vital Signs: Vital Signs Temp Pulse Resp BP Pulse Ox 08/26/17 14:57 97.6 F 87 18 167/84 97 08/26/17 10:58 97.6 F 80 18 169/87 99 08/26/17 07:19 97.4 F L 74 18 138/95 98 08/26/17 03:34 97.9 F 72 16 166/89 96 08/25/17 23:39 98.9 F 77 15 134/85 98 08/25/17 19:59 98.3 F 89 16 156/95 97 Intake and Output 08/26/17 08/26/17 08/26/17 07:59 15:59 23:59 Intake Total 0 / 0 490 / 490 Output Total 0 / 0 0 / 0 Balance 0 / 0 490 / 490 Intake: IV Fluids 250 / 250 Vancocin 1,500 MG In Dextrose 5 250 / 250 % 250 ML @ 166.67 mls/hr IVPB Q12H [facility] Rx#:[id number] Oral 0 / 0 240 / 240 Output: Urine 0 / 0 0 / 0 Other: Meal Breakfast Percent of Meal Consumed 100% Weight 137.3 kg Blood Glucose* 160 243 99 Patient Weight 08/26/17 23:59 Weight 137.3 kg - Exam Exam: General appearance: alert awake oriented X 3. Calm and pleasant, no acute distress.. Vascular: Pedal pulses +2/4 DP/PT , No evidence of cyanosis, pallor or rubor, Edema graded at 1+/4, Skin Tempature warm, No calf pain with manual compression. capillary refill time is immediate to digits. Neurologic: Sensation intact with light touch to foot. . Postop Exam: S/P full-thickness one to the interdigital webspace between toes #1 and #2 of the right foot measuring 6 cm in length by 2 cm in width by 3 cm in depth. No bone exposed. Light periwound erythema. Wound edges are macerated to the plantar aspect of the incision line. No pus, no odor, no streaking, no fluctuance. Tenderness to the plantar aspect of the left foot. - Lab Result Diagrams: 08/25/17 09:45 08/25/17 09:45 Labs: Abnormal lab results WBC 11.4 K/mcL (4.3-11.1) H 08/25/17 09:45 RBC 3.44 M/mcL (3.82-4.97) L 08/25/17 09:45 Hgb 9.2 g/dL (11.5-15.4) L 08/25/17 09:45 Hct 29.0 % (35.3-44.9) L 08/25/17 09:45 MCH 26.7 pg (28.0-33.3) L 08/25/17 09:45 ESR >= 130 mm/hr (0-15) H 08/19/17 13:08 Glucose 119 mg/dL (70-99) H 08/25/17 09:45 POC Glucose 99 (58-89) H 08/26/17 16:16 Hemoglobin A1c >= 14.1 % (-5.6) H 08/20/17 04:30 Magnesium 1.4 mg/dL (1.6-2.6) L 08/20/17 04:30 C-Reactive Protein 142 mg/L (Less than 5) H 08/19/17 13:08 Beta-Hydroxybutyric Acd > 2.00 mmol/L (0.02-0.27) H 08/19/17 13:08 Urine Clarity Turbid (Clear) A 08/20/17 18:38 Ur Specific [place] 1.028 (1.010-1.025) H 08/20/17 18:38 Urine Protein >=300 mg/dL (Neg-Trace) H 08/20/17 18:38 Urine Glucose (UA) >=1000 mg/dL (Normal) H 08/20/17 18:38 Urine Blood Small (Negative) H 08/20/17 18:38 Urine Bilirubin Moderate (Negative) H 08/20/17 18:38 Ur Leukocyte Esterase Small (Negative) H 08/20/17 18:38 Urine Microscopic RBC 5-15 per hpf (0-3) H 08/20/17 18:38 Urine Microscopic WBC 50-100 per hpf (0-3) H 08/20/17 18:38 Ur Squamous Epith Cells Many per lpf (None-Few) H 08/20/17 18:38 Urine Bacteria Moderate per hpf (None-Few) H 08/20/17 18:38 Hyaline Casts Moderate per lpf (None-Few) H 08/20/17 18:38 Granular Casts Few per lpf (None Seen) H 08/20/17 18:38 Urine Yeast Many per hpf (None Seen) H 08/20/17 18:38 Ur Culture Indicated? YES (NO) A 08/20/17 18:38 Microbiology, Last 48 Hours 08/20/17 20:20 Anaerobic Culture - Final Right Foot No anaerobes were recovered. - VTE Documentation of Mechanical Device: Intermittent pneumatic compression device Consult Discharge Plan - Plan Referrals: Rober Lo DPM [Partnered Physician] - 08/28/17 8:15 am Celia Hall CNP [Primary Care Provider] - 09/02/17 12:30 pm Felicia Lama CNP [Advanced Practice Nurse] - 09/09/17 9:20 am Prescriptions: OxyCODONE/APAP 5/325 [Percocet 5/325 MG] 1 each PO Q12HR PRN #10 tablet PRN Reason: Pain amLODIPine [Norvasc] 10 mg PO DAILY #30 tablet Vancomycin HCl in Dextrose 5 % [Vancomycin 1.5 Gram/250 ml-D5w] 1.5 gm IV 1-2XD #30 plast..bag
[2017-08-26] MEDS ORDERED: Vancomycin 1,250 MG in D5% in Water 250 ML IVPB SCH ×2 (18:00→22:00)
[2017-08-27 04:09] LABS: Basophils # 0.1 K/mcL (0.0-0.2); Basophils % 0.5 %; Eosinophils # 0.3 K/mcL (0.0-0.6); Eosinophils % 2.5 %; Hematocrit 28.7 % (35.3-44.9); Hemoglobin 8.9 g/dL (11.5-15.4); Immature Granulocytes % 1.7 % (0-4); Lymphocytes # 2.6 K/mcL (0.6-4.6); Lymphocytes % 21.6 %; Mean Corpuscular Hemoglobin 25.9 pg (28.0-33.3); Mean Corpuscular Volume 83.7 fL (83.0-100.0); Mean Platelet Volume 10.4 fL (9.4-12.4); Monocytes # 1.2 K/mcL (0.0-1.3); Neutrophils # 7.5 K/mcL (1.6-8.9); Platelet Count 327 K/mcL (140-400); Red Blood Count 3.43 M/mcL (3.82-4.97); Red Cell Distribution Width 12.4 % (11.5-14.5); Segmented Neutrophils % 63.7 %
[2017-08-27 04:24] LABS: BUN/Creatinine Ratio 25 (6-26); Blood Urea Nitrogen 20 mg/dL (7-20); Calcium 8.4 mg/dL (8.6-10.8); Carbon Dioxide 28 mEq/L (19-29); Chloride 101 mEq/L (98-109); Glucose 241 mg/dL (70-99); Osmolality,Calculated 295 (280-300); Potassium 3.4 mEq/L (3.5-4.5); Sodium 137 mEq/L (136-145); eGFR For African Americans > 60 (> 60); eGFR For Non-African Americans > 60 (> 60)
[2017-08-27] MEDS: Insulin LISPRO 300 UNITS/3 ML VIAL SQ SCH ×6 (09:41→16:29)
[2017-08-27] MEDS: Lisinopril 20 MG TABLET PO SCH (09:41)
[2017-08-27] MEDS: Insulin DETEMIR 100 UNIT/ML X5UNITS SQ SCH (09:41)
[2017-08-27] MEDS: amLODIPine 5 MG TABLET PO SCH (09:42)
[2017-08-27] MEDS ORDERED: Vancomycin 1,000 MG in D5% in Water 250 ML IVPB SCH (10:00)
--- NOTE | 2017-08-27 11:44 | Internal Med Progress Note ---
Date of Encounter: 08/27/17 Time of Encounter: 09:20 - Assessment and plan (1) Osteomyelitis Current Visit: Yes Status: Acute Assessment and plan: s/p I and D Awaiting set up for IV Vanco Needs 6 weeks of therapy Qualifiers: Osteomyelitis type: other acute Osteomyelitis location: foot Laterality: right Qualified Code(s): M86.171 - Other acute osteomyelitis, right ankle and foot (2) Diabetes Current Visit: Yes Status: Chronic Assessment and plan: Uncontrolled on admission with neuropathy, deiabetic ulcer/OM FS appear stable for now, continue current regimen Qualifiers: Diabetes mellitus type: type 2 Diabetes mellitus complication status: with other specified complication Diabetes mellitus terminal gauger supervisor insulin use: with half-way use Qualified Code(s): E11.69 - Type 2 diabetes mellitus with other specified complication; Z79.4 - terminal press operator (current) use of insulin; Z79.4 - half-way (current) use of insulin; Z79.4 - half-way (current) use of insulin; Z79.4 - terminal press operator (current) use of insulin (3) Hypothyroidism Current Visit: Yes Status: Suspected Assessment and plan: Continue home medications. Qualifiers: Hypothyroidism type: acquired Qualified Code(s): E03.9 - Hypothyroidism, unspecified (4) Hypertension Current Visit: Yes Status: Chronic Assessment and plan: Controlled on current regimen, continue same Qualifiers: Hypertension type: essential hypertension Qualified Code(s): I10 - Essential (primary) hypertension (5) Cellulitis of foot Current Visit: Yes Status: Acute Assessment and plan: Continue vancomycin Wound care (6) Morbid obesity with BMI of 45.0-49.9, adult Current Visit: Yes Status: Chronic Assessment and plan: Lifestyle modifications. (7) Sepsis Current Visit: Yes Status: Resolved Assessment and plan: Resolved Qualifiers: Sepsis type: sepsis due to unspecified organism Qualified Code(s): A41.9 - Sepsis, unspecified organism - Subjective Interval history: 36 F with Uncontrolled DM, HTN, MOrbid Obesity She was admitted 8 days ago for Sepsis secondary to R foot cellulitis due to Strep agalactiae and R foot OM. She also has uncontrolled DM with A1C >14 She is s/p multiple I/D b podiatry with a wound vac Her sepsis has resolved She is awaiting set up for iV infusion and wound care/wound Vac, she has no insurance She is seen at bedside with spouse this a.m, she denies new complains. - Constitutional Vitals: Temp Pulse Resp BP Pulse Ox 97.5 F L 89 18 137/83 97 08/27/17 07:39 08/27/17 07:39 08/27/17 07:39 08/27/17 07:39 08/27/17 07:39 General appearance: Present: A&O X 3, morbidly obese, pleasant, no acute distress, answers questions appropriately - Head Head exam: Present: atraumatic, normocephalic - Eye Eye exam: Present: PERRL, conjuntiva pink, sclera anicteric Pupils: Present: PERRL - Neck Neck exam general surgery: Present: supple, trachea midline. Absent: lymphadenopathy - Respiratory Respiratory exam: Present: CTAB. Absent: accessory muscle use, rales, rhonchi, wheezes - Cardiovascular Cardiovascular exam: Present: RRR, +S1, +S2. Absent: diastolic murmur, gallop, rubs, systolic murmur - GI/Abdominal GI/Abdominal exam: Present: normal bowel sounds, soft, no peritoneal signs. Absent: distended, tenderness - Extremities Exam Additional comments: R foot in dressing, slightly soaked, wound vac in-situ. 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 Absent: pronater drift, facial droop, speech deficit - Skin Skin exam: Present: dry Internal Medicine: Result - Labs CBC & Chem 7: 08/27/17 04:00 08/27/17 04:00 Labs: Short CBC 08/27/17 Range/Units 04:00 WBC 11.8 H (4.3-11.1) K/mcL Hgb 8.9 L (11.5-15.4) g/dL Hct 28.7 L (35.3-44.9) % Plt Count 327 (140-400) K/mcL Neutrophils # 7.5 (1.6-8.9) K/mcL BMP 08/27/17 04:00 Sodium 137 Potassium 3.4 L Chloride 101 Carbon Dioxide 28 BUN 20 Creatinine 0.80 Glucose 241 H Calcium 8.4 L - ABG Interpretation ABG results: PT/INR, D-dimer PT 11.2 Seconds (9.4-12.1) 08/20/17 10:53 - VTE Documentation of Mechanical Device: Intermittent pneumatic compression device Consult Discharge Plan - Plan Referrals: Rober Lo DPM [Partnered Physician] - 08/28/17 8:15 am Celia Hall INJECTION MOLDER [Primary Care Provider] - 09/02/17 12:30 pm Felicia Lama CNP [Advanced Practice Nurse] - 09/09/17 9:20 am Prescriptions: OxyCODONE/APAP 5/325 [Percocet 5/325 MG] 1 each PO Q12HR PRN #10 tablet PRN Reason: Pain amLODIPine [Norvasc] 10 mg PO DAILY #30 tablet Vancomycin HCl in Dextrose 5 % [Vancomycin 1.5 Gram/250 ml-D5w] 1.5 gm IV 1-2XD #30 plast..bag
--- NOTE | 2017-08-27 13:26 | Physician Discharge Referral ---
Home Health/Hosp Referral Info Transfer to: Home Health Attending Provider: Ismael Provider in Charge Post Discharge: PCP - Diagnosis (1) Osteomyelitis Priority: Primary Status: Acute (2) Diabetes Priority: Secondary Status: Chronic (3) Hypothyroidism Priority: Secondary Status: Suspected (4) Hypertension Priority: Secondary Status: Chronic (5) Cellulitis of foot Priority: Primary Status: Acute (6) Morbid obesity with BMI of 45.0-49.9, adult Priority: Secondary Status: Chronic (7) Sepsis Priority: Primary Status: Resolved - Respiratory Orders Smoking Cessation: Smoking cessation has been advised. For more information, call the [employer] Quit Line at [phone]. - Dressing/Wound Care Site: R wound Vac M/W/F - Diet/Nutrition Diet/Nutrition Orders: No Added Salt (BRIGID), Cardiac, No Concentrated Sweets - Activity Activity Orders: Up ad cesilia - Services Needed Following services are medically necessary services: Home Infusion (IV vancomycin 1000mg q12hr) - Transfer Medications Prescriptions: OxyCODONE/APAP 5/325 [Percocet 5/325 MG] 1 each PO Q12HR PRN #10 tablet PRN Reason: Pain amLODIPine [Norvasc] 10 mg PO DAILY #30 tablet Vancomycin HCl in Dextrose 5 % [Vancomycin 1.5 Gram/250 ml-D5w] 1.5 gm IV 1-2XD #30 plast..bag Home Medications: Insulin ASPART [NovoLOG] 0 units SQ TID 08/04/16 [History] Insulin Glargine [Lantus] 60 units SQ QAM 08/04/16 [History] Levothyroxine [Synthroid] 75 mcg PO DAILY 08/04/16 [History] Lisinopril [Zestril] 20 mg PO DAILY 08/19/17 [History] Vancomycin HCl in Dextrose 5 % [Vancomycin 1.5 Gram/250 ml-D5w] 1.5 gm IV 1-2XD #30 plast..bag 08/23/17 [Rx] OxyCODONE/APAP 5/325 [Percocet 5/325 MG] 1 each PO Q12HR PRN #10 tablet [Rx] amLODIPine [Norvasc] 10 mg PO DAILY #30 tablet 08/26/17 [Rx] Allergies/Adverse Reactions: 3 Allergy/AdvReac Type Severity Reaction Status Date / Time Amoxicillin Allergy Swelling Verified 02/19/17 18:04 of Lip/Tongue/Throat ampicillin Allergy Swelling Verified 02/19/17 18:04 of Lip/Tongue/Throat Sulfa (Sulfonamide Allergy Rash Verified 02/19/17 18:04 Antibiotics) sulfamethoxazole Allergy Rash Verified 02/19/17 18:04 [From Bactrim] trimethoprim [From Bactrim] Allergy Rash Verified 02/19/17 18:04 Erythromycin Base AdvReac Unknown Itching Verified 02/19/17 18:04 Penicillins [PCN] AdvReac Itching Verified 02/19/17 18:04 Certification: Further, I certify that my clinical findings support that this patient is homebound (i.e. absences from home require considerable and taxing effort and are for medical reasons or mormonism services or infrequently or short duration when for other reasons) because: Homebound Reason: Post-surgery restriction and or conditions limit ability to leave home Attestation: My signature below is to certify that this patient is under my care and that I, or nurse practitioner, or a physician's assistant to the dean working with me, has a face-to -face encounter with this patient.
[2017-08-27] MEDS ORDERED: *HR* Heparin 5,000 UNIT/ML VIAL SQ SCH (14:00)
--- NOTE | 2017-08-27 14:05 | Infectious Disease Progress No ---
Date of Encounter: 08/27/17 Time of Encounter: 14:00 - Assessment and Plan (1) Sepsis Current Visit: Yes Status: Resolved The patient had two SIRS criteria on admission. Likely secondary to right foot infection. Improved. WBC normalized. Tachycardia has resolved. Blood cultures drawn 08/19/17 are negative. Qualifiers: Sepsis type: sepsis due to unspecified organism Qualified Code(s): A41.9 - Sepsis, unspecified organism (2) Osteomyelitis Current Visit: Yes Status: Suspected Location: Right foot Causative organism GBS. Secondary to right foot DFU. ESR >130. CRP 142. CT of the right foot showed subcutaneous edema dorsally at the level of the 1st digit and 1st interspace. Podiatry consulted and took the patient to the OR 08/20/17 for I & D of the right foot. Operative note reviewed. No bone changes noted, but large amount of purulence was noted directly adjacent to the bone. Given the evidence of gross purulence and markedly elevated inflammatory markers , high index of suspicion for early OM. Continue Vancomycin IV. Pharmacy to dose. Goal trough ~15. Will plan on using Vancomycin for the duration of treatment due to the patient's PCN allergy. Continue wound care and activity restrictions as outlined by the podiatry team. Duration of treatment depends on the clinical picture, but likely 6 weeks of IV antibiotics. client services manager to assist with discharge planning. Get weekly CBC, BUN/Cr, ESR, CRP, and Vanc trough every Saturday for the duration of treatment. Weekly PICC care per protocol. Follow up with ID 09/09/17 at 0920. Qualifiers: Osteomyelitis type: acute hematogenous Osteomyelitis location: foot Laterality: right Qualified Code(s): M86.071 - Acute hematogenous osteomyelitis, right ankle and foot (3) Cellulitis of foot Current Visit: Yes Status: Acute Location: Right foot. Causative organism GBS. Improved. Continue antibiotics as above. (4) Hyperglycemia Current Visit: Yes Status: Acute FSBS 467 on admission. Patient reports poorly controlled blood sugars at home as well. Management per the primary team. (5) Diabetes Current Visit: Yes Status: Chronic Uncontrolled. HgbA1C >14.1%. Recommend aggressive glucose monitoring and control to promote wound healing and prevent re-infection. Will refer to DM TAXICAB COORDINATOR outpatient to assist with glucose management. Patient agreeable. Qualifiers: Diabetes mellitus type: type 2 Diabetes mellitus complication status: with other specified complication Diabetes mellitus fpc insulin use: with rodent exterminator use Qualified Code(s): E11.69 - Type 2 diabetes mellitus with other specified complication; Z79.4 - long term care pharmacist (current) use of insulin; Z79.4 - long term care pharmacist (current) use of insulin; Z79.4 - long term care pharmacist (current) use of insulin; Z79.4 - care home (current) use of insulin (6) Hypertension Current Visit: Yes Status: Chronic Qualifiers: Hypertension type: essential hypertension Qualified Code(s): I10 - Essential (primary) hypertension (7) Morbid obesity with BMI of 45.0-49.9, adult Current Visit: Yes Status: Chronic - Subjective Interval history: Patient seen and examined. No acute events noted overnight. Patient resting quietly in bed with family at bedside. States overall she feels okay, awaiting discharge. Denies fevers, chills, or rigors. Denies chest pain, shortness of breath, or cough. Denies diarrhea. States she had a small BM. Denies urinary complaints. Reports intermittent right foot pain, none currently. Denies oral thrush or skin lesions. She does report some intermittent nausea, but states she became nauseated this morning when her blood sugar was 50. Infect Dis PN-Objective Data - Labs CBC & Chem 7: 08/27/17 04:00 08/27/17 04:00 Labs: Laboratory Results - last 24 hr 08/26/17 08/26/17 08/26/17 16:16 17:00 20:07 WBC RBC Hgb Hct MCV MCH MCHC RDW Plt Count MPV Immature Gran % Seg Neutrophils % Lymphocytes % Monocytes % Eosinophils % Basophils % Neutrophils # Lymphocytes # Monocytes # Eosinophils # Basophils # Sodium Potassium Chloride Carbon Dioxide BUN Creatinine Est GFR ( Amer) Est GFR (Non-Af Amer) BUN/Creatinine Ratio Glucose POC Glucose 99 H 295 H Calculated Osmolality Calcium Vancomycin Trough 21.5 H* 08/27/17 08/27/17 08/27/17 04:00 04:00 11:41 WBC 11.8 H RBC 3.43 L Hgb 8.9 L Hct 28.7 L MCV 83.7 MCH 25.9 L MCHC 31.0 L RDW 12.4 Plt Count 327 MPV 10.4 Immature Gran % 1.7 Seg Neutrophils % 63.7 Lymphocytes % 21.6 Monocytes % 10.0 Eosinophils % 2.5 Basophils % 0.5 Neutrophils # 7.5 Lymphocytes # 2.6 Monocytes # 1.2 Eosinophils # 0.3 Basophils # 0.1 Sodium 137 Potassium 3.4 L Chloride 101 Carbon Dioxide 28 BUN 20 Creatinine 0.80 Est GFR ( Amer) > 60 Est GFR (Non-Af Amer) > 60 BUN/Creatinine Ratio 25 Glucose 241 H POC Glucose 54 L Calculated Osmolality 295 Calcium 8.4 L Vancomycin Trough 08/27/17 12:26 WBC RBC Hgb Hct MCV MCH MCHC RDW Plt Count MPV Immature Gran % Seg Neutrophils % Lymphocytes % Monocytes % Eosinophils % Basophils % Neutrophils # Lymphocytes # Monocytes # Eosinophils # Basophils # Sodium Potassium Chloride Carbon Dioxide BUN Creatinine Est GFR ( Amer) Est GFR (Non-Af Amer) BUN/Creatinine Ratio Glucose POC Glucose 91 H Calculated Osmolality Calcium Vancomycin Trough Cultures: Cultures 08/20/17 20:20 Anaerobic Culture - Final Right Foot No anaerobes were recovered. 08/20/17 20:20 Wound Culture - Final Right Foot Strep agalactiae - (Group B) 08/20/17 18:38 Urine Culture - Final Urine,Clean Catch No pathogens isolated. Serology 08/20/17 08/20/17 Range/Units 18:38 18:38 Urine Color Yellow (Yellow) Urine Clarity Turbid A (Clear) Urine pH 5.0 (5.0-8.0) pH Units Ur Specific Addy 1.028 H (1.010-1.025) Urine Protein >=300 H (Neg-Trace) mg/dL Urine Glucose (UA) >=1000 H (Normal) mg/dL Urine Ketones Negative (Negative) mg/dL Urine Blood Small H (Negative) Urine Nitrite Negative (Negative) Urine Bilirubin Moderate H (Negative) Urine Urobilinogen Normal (Normal) mg/dL Ur Leukocyte Esterase Small H (Negative) Urine Microscopic RBC 5-15 H (0-3) per hpf Urine Microscopic WBC 50-100 H (0-3) per hpf Ur Squamous Epith Cells Many H (None-Few) per lpf Amorphous Sediment Few (Few) Urine Bacteria Moderate H (None-Few) per hpf Hyaline Casts Moderate H (None-Few) per lpf Granular Casts Few H (None Seen) per lpf Urine Mucus Few (Few) Urine Yeast Many H (None Seen) per hpf Ur Culture Indicated? YES A (NO) Urine Test Negative (Negative) Exam - Constitutional Vitals: Temp Pulse Resp BP Pulse Ox 97.9 F 76 18 123/78 98 08/27/17 11:46 08/27/17 11:46 08/27/17 11:46 08/27/17 11:46 08/27/17 11:46 General appearance: cooperative, morbidly obese, no acute distress - Head Head exam: Present: atraumatic, normal inspection, normocephalic - Eye Eye exam: Present: EOMI, normal appearance, PERRL Pupils: Present: normal accommodation - ENT ENT exam: Present: mucous membranes moist - Neck Neck exam: Present: normal inspection - Respiratory Respiratory exam: Present: CTAB. Absent: rales, respiratory distress, rhonchi, wheezes - Cardiovascular Cardiovascular exam: Present: RRR, +S1, +S2 - GI/Abdominal GI/Abdominal exam: Present: normal bowel sounds, soft. Absent: distended, tenderness - Extremities Exam Extremities exam: Present: pedal edema (1+ RLE), tenderness (right foot) Additional comments: Right foot wound VAC dressing intact with sponge well-compressed. Small amount of serosanguinous drainage noted in the wound VAC canister. Tenderness noted with palpation of the area around the surgical site. No fluctuance noted. - Neurological Exam Neurological exam: Present: alert, oriented X3, no focal deficits - Psychiatric Psychiatric exam: Present: normal affect, normal mood - Skin Skin exam: Present: dry, intact, normal color, warm - Additional findings Additional findings: PICC line noted to the RUE with transparent dressing C/D/I. - VTE Documentation of Mechanical Device: Intermittent pneumatic compression device Consult Discharge Plan - Plan Referrals: Rober oL DPM [Partnered Physician] - 08/28/17 8:15 am Celia Hall CNP [Primary Care Provider] - 09/02/17 12:30 pm Felicia Lama CNP [Advanced Practice Nurse] - 09/09/17 9:20 am Prescriptions: OxyCODONE/APAP 5/325 [Percocet 5/325 MG] 1 each PO Q12HR PRN #10 tablet PRN Reason: Pain amLODIPine [Norvasc] 10 mg PO DAILY #30 tablet Vancomycin HCl in Dextrose 5 % [Vancomycin 1.5 Gram/250 ml-D5w] 1.5 gm IV 1-2XD #30 plast..bag
[2017-08-27 16:05] VITALS: BP 146/80
[2017-08-27] MEDS ORDERED: Aminoglycoside Consult 1 EACH MC ONE (17:59)
== END 2017-08-27 18:00 | disposition home or self-care (01) | DRG 854 ==
LOC: EMEROO 12:21 → 3ANU 12:21 → SUATTDRO 20:22 → 3ANU 08-20 19:26
PROVIDERS: ADMIT Family Medicine; ATTEND Internal Medicine